=== PATIENT | female | born 1970 | race American Indian/Alaskan Native ===

== ENCOUNTER 2018-03-03 14:46 | Emergency (ER) | payer MEDICAID ==
[2018-03-03] MEDS ORDERED: ASPIRIN PO ONE (15:55)
[2018-03-03 16:18] LABS: Basophils % (Auto) 0.3 % (0.0-1.8); Eosinophils # (Auto) 0.1 K/mm3 (0.0-0.4); Eosinophils % (Auto) 2.3 % (0.0-4.3); Hematocrit 32.6 % (30.3-42.9); Hemoglobin 10.7 gm/dl (10.1-14.3); Lymphocytes # (Auto) 2.3 K/mm3 (1.2-5.4); Lymphocytes % (Auto) 47.2 % (13.4-35.0); Mean Corpuscular HGB Conc 33 % (30-34); Mean Corpuscular Hemoglobin 29 pg (28-32); Mean Corpuscular Volume 88 fl (79-97); Monocytes # (Auto) 0.4 K/mm3 (0.0-0.8); Monocytes % (Auto) 8.1 % (0.0-7.3); Platelet Count 231 K/mm3 (140-440); Red Blood Count 3.68 M/mm3 (3.65-5.03); Red Cell Distribution Width 12.8 % (13.2-15.2)
[2018-03-03 16:31] LABS: BUN/Creatinine Ratio 23; Blood Urea Nitrogen 14 mg/dL (7-17); Calcium 9.7 mg/dL (8.4-10.2); Hemolysis Index 1
[2018-03-03] MEDS ORDERED: NITROSTAT SL PRN (17:18)
--- NOTE | 2018-03-03 17:20 | Emergency Department Report ---
Blank Doc - Documentation Documentation: Patient is a 47-year-old Female who states that she has been having about 2 days of chest pain. Patient states pain is center chest as a sharp pain that is constant. Patient states is worse with exertion. She has some associated shortness of breath and diaphoresis. Patient states her blood pressure and elevated the past 2 days she took clonidine before arrival which did bring the pressure down however she states she still having active chest pain. Patient's EKG is within normal limits. Patient states she has a history of high blood pressure which is her only risk factor for coronary disease. Patient does have a convincing story for possible coronary disease however she also mentioned that the patient has pain when she takes a deep breath. D-dimer will be ordered. Patient will be sent to the made for a chest x-ray D dimer and reevaluation
[2018-03-03] MEDS ORDERED: TORADOL IM ONE (18:38)
--- NOTE | 2018-03-03 20:27 | Emergency Department Report ---
ED Chest Pain HPI - General Chief Complaint: Chest Pain Stated Complaint: CHEST PAIN Time Seen by Provider: 03/03/18 17:09 Source: patient Mode of arrival: Ambulatory Limitations: No Limitations - History of Present Illness Initial Comments: Patient is 47 years old female with history of hypertension. Patient presented to the ER complaining of substernal chest pain described as sharp was no radiation. Patient stated that pain increased with movement. She denied any shortness of breath, sweating, nausea or vomiting. Patient stated that her blood pressure was really high this morning she took clonidine, blood pressure is 110/68. Patient denied any fever or cough. MD Complaint: chest pain -: This morning Onset: during rest Pain Location: substernal Severity scale (0 -10): 9 Quality: sharp Consistency: now resolved - Related Data Home Medications Medication Instructions Recorded Confirmed Last Taken Losartan/Hydrochlorothiazide 1 tab PO QDAY 05/31/15 05/31/15 Unknown [Hyzaar 100-25 TAB] Allergies Allergy/AdvReac Type Severity Reaction Status Date / Time No Known Allergies Allergy Unverified 05/31/15 11:45 Heart Score - HEART Score History: Slightly suspicious EKG: Non-specific Age: 45-65 Risk factors: 1-2 risk factors Troponin: < normal limit HEART Score: 3 - Critical Actions Critical Actions: 0-3 pts:0.9-1.7%risk of adverse cardiac event.Candidate for discharge ED Review of Systems ROS: Stated complaint: CHEST PAIN Other details as noted in HPI Comment: All other systems reviewed and negative Constitutional: denies: chills, fever Respiratory: denies: cough, orthopnea, shortness of breath, SOB with exertion Cardiovascular: chest pain Gastrointestinal: denies: abdominal pain, nausea, vomiting, diarrhea, constipation, hematemesis, hematochezia Neurological: denies: headache, weakness, numbness, paresthesias, abnormal gait ED Past Medical Hx - Past Medical History Hx Hypertension: Yes (x 5 years) Hx Arthritis: Yes (hips) Hx HIV: Yes ("diagnosed HIV+, but undetectable now" no treatment) - Surgical History Past Surgical History?: No - Social History Smoking Status: Never Smoker Substance Use Type: None - Medications Home Medications: Home Medications Medication Instructions Recorded Confirmed Last Taken Type Losartan/Hydrochlorothiazide 1 tab PO QDAY 05/31/15 05/31/15 Unknown History [Hyzaar 100-25 TAB] ED Physical Exam - General Limitations: No Limitations General appearance: alert, in no apparent distress - Head Head exam: Present: atraumatic, normocephalic, normal inspection - Eye Eye exam: Present: normal appearance, PERRL - ENT ENT exam: Present: normal exam, normal orophraynx, mucous membranes moist - Neck Neck exam: Present: normal inspection, full ROM. Absent: tenderness, meningismus, lymphadenopathy, thyromegaly - Respiratory Respiratory exam: Present: normal lung sounds bilaterally, chest wall tenderness. Absent: respiratory distress, wheezes, rales, rhonchi, accessory muscle use, decreased breath sounds, prolonged expiratory - Cardiovascular Cardiovascular Exam: Present: regular rate, normal rhythm, normal heart sounds - GI/Abdominal GI/Abdominal exam: Present: soft, normal bowel sounds. Absent: distended, tenderness, guarding, rebound, rigid, organomegaly, mass, bruit, pulsatile mass - Extremities Exam Extremities exam: Present: normal inspection, full ROM, normal capillary refill. Absent: pedal edema, calf tenderness - Back Exam Back exam: Present: normal inspection, full ROM. Absent: tenderness, CVA tenderness (R), CVA tenderness (L), muscle spasm, paraspinal tenderness - Neurological Exam Neurological exam: Present: alert, oriented X3, CN II-XII intact, normal gait, reflexes normal - Psychiatric Psychiatric exam: Present: normal affect - Skin Skin exam: Present: warm, intact, normal color ED Course Vital Signs 03/03/18 03/03/18 15:47 18:32 Temperature 98.5 F Pulse Rate 99 H 61 Respiratory 20 12 Rate Blood Pressure 127/69 Blood Pressure 128/70 [left] O2 Sat by Pulse 99 100 Oximetry ED Medical Decision Making - Lab Data Result diagrams: 03/03/18 16:03 03/03/18 16:03 - EKG Data -: EKG Interpreted by Nh EKG shows normal: sinus rhythm Rate: normal - EKG Data Interpretation: no acute changes - Radiology Data Radiology results: report reviewed Chest x-ray is unremarkable for acute findings. - Medical Decision Making Trev is 47 years old female with history of hypertension. Patient presented to the ER complaining of substernal chest pain described as sharp was no radiation. Patient stated that pain increased with movement. She denied any shortness of breath, sweating, nausea or vomiting. Patient stated that her blood pressure was really high this morning she took clonidine, blood pressure is 110/68. Patient denied any fever or cough. EKG did not show any ST elevation or depression. 2 sets of troponin is negative. D-dimer is negative. Chest x-ray negative for acute finding. Patient has a reproducible tenderness to the mid chest. I believe her symptom is most likely related to costochondritis. Patient will be given Naprosyn twice a day for 7 days and advised to follow-up with [facility] in the next 2-3 days. Critical care attestation.: If time is entered above; I have spent that time in minutes in the direct care of this critically ill patient, excluding procedure time. ED Disposition Clinical Impression: Chest pain, Hypertension, Costochondritis, acute Disposition: DC-01 TO HOME OR SELFCARE Is pt being admited?: No Condition: Stable Instructions: Chest Pain (ED), Hypertension (ED), Costochondritis (ED) Referrals: [facility] [Outside] - 3-5 Days
[2018-03-03 21:04] VITALS: BP 110/67
--- NOTE | 2018-03-04 10:27 | XRay Report ---
FINAL REPORT EXAM: XRAY CHEST 2 VIEWS HISTORY: Chest pain TECHNIQUE: 2 views of the chest. PRIORS: None. FINDINGS: The cardiomediastinal silhouette appears normal. The lungs are clear. The bones and soft tissues are unremarkable. IMPRESSION: No evidence of acute cardiopulmonary disease
== END 2018-03-03 21:05 | disposition home or self-care (01) ==
LOC: ED 14:46
DX: R07.89 Other chest pain (principal); I10 Essential (primary) hypertension; M19.90 Unspecified osteoarthritis, unspecified site; Z21 Asymptomatic human immunodeficiency virus [HIV] infection status
CPT/HCPCS: 36415; 71046; 80048; 84484; 85025; 85379; 93005; 93010; 96372; 99284; J1885

== ENCOUNTER 2018-09-17 08:00 | Inpatient (IN) | payer MEDICAID ==
[2018-09-29 11:19] LABS: INR 0.85 (0.87-1.13)
[2018-09-29 11:20] LABS: Partial Thromboplastin Time 27.8 Sec. (24.2-36.6)
[2018-09-29 11:23] LABS: Basophils % (Auto) 0.6 % (0.0-1.8); Eosinophils # (Auto) 0.1 K/mm3 (0.0-0.4); Hematocrit 32.6 % (30.3-42.9); Hemoglobin 10.4 gm/dl (10.1-14.3); Lymphocytes # (Auto) 2.1 K/mm3 (1.2-5.4); Lymphocytes % (Auto) 39.1 % (13.4-35.0); Mean Corpuscular HGB Conc 32 % (30-34); Mean Corpuscular Volume 87 fl (79-97); Monocytes # (Auto) 0.5 K/mm3 (0.0-0.8); Monocytes % (Auto) 8.8 % (0.0-7.3); Platelet Count 211 K/mm3 (140-440); Red Blood Count 3.76 M/mm3 (3.65-5.03); Red Cell Distribution Width 14.1 % (13.2-15.2)
[2018-09-29 11:37] LABS: Alanine Aminotransferase 21 units/L (7-56); Albumin 4.3 g/dL (3.9-5); BUN/Creatinine Ratio 20; Blood Urea Nitrogen 14 mg/dL (7-17); Calcium 9.7 mg/dL (8.4-10.2); Hemolysis Index 15
--- NOTE | 2018-09-29 14:53 | Anesthesia Consultation ---
Anesthesia Consult and Med Hx Date of service: 09/29/18 - Airway Anesthetic Teeth Evaluation: Good ROM Head & Neck: Adequate Mental/Hyoid Distance: Adequate Mallampati Class: Class III Intubation Access Assessment: Possibly Difficult - Pulmonary Exam CTA: Yes - Cardiac Exam Cardiac Exam: RRR - Pre-Operative Health Status ASA Pre-Surgery Classification: ASA3 Proposed Anesthetic Plan: General - Pulmonary Hx Smoking: No Hx Pneumonia: Yes (2018- RESOLVED) Hx Sleep Apnea: No (MARIA ESTHER PRE SCREEN LOW RISK) - Cardiovascular System Hx Hypertension: Yes Hx Heart Attack/AMI: No - Central Nervous System CVA: No - Gastrointestinal Hx Gastroesophageal Reflux Disease: No - Endocrine Hx Renal Disease: No Hx Liver Disease: No Hx Insulin Dependent Diabetes: No Hx Non-Insulin Dependent Diabetes: No Hx Thyroid Disease: No - Hematic Hx Anemia: Yes - Other Systems Hx Obesity: Yes - Additional Comments Anesthesia Medical History Comments: Hx HIV on antiretrovirals. Discussed GA vs neuraxial anesthetic. Patient has strong preference for GA.
[2018-10-01] MEDS ORDERED: ANCEF/STERILE WATER 2 GM/20 ML IV NR (00:01)
[2018-10-01] MEDS ORDERED: VERSED IV NR (00:01)
[2018-10-01] MEDS ORDERED: NEURONTIN PO NR (06:00)
--- NOTE | 2018-10-01 07:14 | Anesthesia Day of Surgery ---
Anesthesia Day of Surgery - Day of Surgery Patient Examined: Yes Patient H&P Reviewed: Yes Patient is NPO: Yes (1899) Beta Blockers: No Cardiac Clearance: No Pulmonary Clearance: No
[2018-10-01] MEDS: LACTATED RINGERS 1,000 ML IV SCH ×2 (07:17→17:44)
[2018-10-01] MEDS ORDERED: ZEMURON IV ONE (07:29)
[2018-10-01] MEDS ORDERED: DIPRIVAN 10 MG/ML IV ONE (07:29)
[2018-10-01] MEDS ORDERED: XYLOCAINE MPF 2% ONE (07:29)
[2018-10-01] MEDS ORDERED: SUBLIMAZE ONE ×2 (07:29→09:14)
[2018-10-01] MEDS ORDERED: MARCAINE 0.5% INFILTRATI ONE ×4 (07:33→09:55)
[2018-10-01] MEDS ORDERED: TORADOL ONE (07:33)
[2018-10-01] MEDS ORDERED: NACL 0.9% 250ML 250 ML ONE (07:34)
[2018-10-01] MEDS ORDERED: TRANEXAMIC ACID ONE (07:34)
[2018-10-01] MEDS ORDERED: NACL 0.9% 100 ML ONE (07:34)
[2018-10-01] MEDS ORDERED: MORPHINE ONE (07:34)
[2018-10-01] MEDS ORDERED: ROBINUL ONE (07:36)
[2018-10-01] MEDS ORDERED: BLOXIVERZ ONE (07:36)
[2018-10-01] MEDS ORDERED: ZOFRAN IV PRN (08:00)
[2018-10-01] MEDS ORDERED: DILAUDID IV PRN (08:00)
[2018-10-01] MEDS ORDERED: DECADRON ONE (08:34)
[2018-10-01] MEDS ORDERED: ZOFRAN ONE (08:34)
[2018-10-01] MEDS ORDERED: TRANEXAMIC ACID IV ONE (08:59)
[2018-10-01] MEDS ORDERED: NACL 0.9% IV ONE (08:59)
[2018-10-01] MEDS ORDERED: ACD-A 500 ML IV ONE (09:11)
[2018-10-01] MEDS ORDERED: NACL 0.9% 500 ML 500 ML IV NR ×2 (09:14→11:00)
[2018-10-01] MEDS ORDERED: DILAUDID ONE (09:15)
--- NOTE | 2018-10-01 09:18 | XRay Report ---
LEFT HIP RADIOGRAPHS INDICATION: Preop evaluation. COMPARISON: None similar. FINDINGS: AP pelvic and frog-leg projections of the left hip demonstrate extensive bilateral femoral head heterogeneous deformity/irregularity measuring approximately 4.2 cm on either side and involving approximately 70% of the articular surface with collapse. Mild bilateral acetabular degenerative spurring as well. Intact remainder pelvis articulation, including SI joints. Nonobstructive bowel gas pattern. CONCLUSION: Extensive bilateral femoral head osteonecrosis deformity/collapse, as described. Please correlate. Thank you for the opportunity to participate in this patient's care.
[2018-10-01] MEDS ORDERED: NACL 0.9% 250ML IV ONE ×2 (09:55)
[2018-10-01] MEDS ORDERED: TORADOL IV ONE ×2 (09:55)
[2018-10-01] MEDS ORDERED: MORPHINE IM ONE ×2 (09:55)
[2018-10-01] MEDS ORDERED: PERCOCET 5/325 PO PRN (10:30)
--- NOTE | 2018-10-01 10:36 | Procedure Note ---
Date of procedure: 10/01/18 Pre-op diagnosis: severe osteoarthritis left hip Post-op diagnosis: same Procedure: Left total hip replacement Procedure The patient was brought to the OR and placed in the OR table in the supine position following induction intubation by anesthesia the patient's was turned into the right lateral decubitus position care was taken to protect the bony areas and a axillary roll was used and the left axilla. Left hip and thigh were then prepped and draped in the usual sterile manner. A timeout procedure was done to identify the patient and the correct operative site. Using the lateral approach incision was taken down through skin and subcutaneous the fascia jud was incised A Charnley retractor was placed deep within the wound care was taken to enter the anterior hip capsule by the vastus lateralis and the gluteus medius tendons in the knee was flexed and internally rotated which brought us upon the anterior portion of the hip joint using a small broach and osteotomy was performed on the femoral neck approximately 2 cm to centimeters proximal to the lesser trochanter. Using [place] retractors the the acetabular structures were evaluated the patient was noted to have some moderate changes within the acetabulum reaming was begun starting with a 45 mm diameter and advancing up to a 55 mm cup was taken to the observed bleeding bone within the acetabulum nicely 56 mm cup was inserted care was taken to maintain the proper version that being 45 abduction and 20 of anteversion and a small screw was used to stabilize this acetabular component next attention was turned to the proximal femur using a cookie cutter and the proximal femoral canal was entered this was then reamed and broached to a #5 stem And the hip joint was then reduced using a 30 neutral neck and a 32 mm head hip was reduced taken through a range of motion and was found to be stable Trial component was removed and the hip joint was then copiously irrigated the final components were inserted that being a #5 femoral stem with a 32 mm head again the hip joint was reduced and was taken through a range of motion and found stable. He was closed in a standard routine fashion. Dressings were applied the patient tolerated the procedure and there were no complications he was taken to postanesthesia recovery stable Anesthesia: GETA Surgeon: SALVADOR FARIAS Well Shooter: AUBREY TREJO Estimated blood loss: other (300 mL) Pathology: list (left femoral head and neck) Specimen disposition: to lab Condition: stable Disposition: PACU
[2018-10-01] MEDS ORDERED: BENADRYL ONE (10:42)
[2018-10-01] MEDS ORDERED: NORCO 5/325 PO PRN (11:00)
[2018-10-01] MEDS ORDERED: SODIUM CHLORIDE FLUSH SYRINGE 10 ML IV NR (11:00)
[2018-10-01] MEDS ORDERED: NACL 0.9% 1000 ML 1,000 ML ONE (11:02)
--- NOTE | 2018-10-01 11:05 | XRay Report ---
LEFT HIP RADIOGRAPHS INDICATION: Postop evaluation. COMPARISON: 7:42 AM earlier today. FINDINGS: AP pelvic rejection and a frog-leg view of the left hip, 10:52 AM, 10/01/2018 demonstrate interval left hip replacement with expected adjacent soft tissue air. Stable right hip osteonecrosis. CONCLUSION: Expected post left hip replacement radiographic appearance. Stable right hip AVN. Thank you for the opportunity to participate in this patient's care.
[2018-10-01] MEDS: ANCEF/NS 1 GM/50 ML 1 GM/50 ML BAG IV SCH ×2 (12:20→21:31)
--- NOTE | 2018-10-01 16:40 | Post Anesthesia Evaluation ---
- Post Anesthesia Evaluation Patient Participated: Yes Airway Patent: Yes Stable Respiratory Function: Yes Nausea/Vomiting: No Temp > 96.8F: Yes Pain Manageable: Yes Adequeate Hydration: Yes Anesthesia Complications: No
[2018-10-01] MEDS: MORPHINE IV PRN ×2 (17:44→21:53)
[2018-10-01] MEDS: VALTREX PO SCH (22:41)
[2018-10-02] MEDS: MORPHINE IV PRN ×4 (02:39→22:11)
[2018-10-02] MEDS: LACTATED RINGERS 1,000 ML IV SCH (04:36)
[2018-10-02 05:48] LABS: Hematocrit 22.4 % (30.3-42.9); Hemoglobin 7.6 gm/dl (10.1-14.3)
[2018-10-02] MEDS: VALTREX PO SCH ×2 (09:15→21:09)
[2018-10-02] MEDS: LOVENOX SUB-Q SCH (09:15)
[2018-10-02] MEDS ORDERED: NORVASC PO SCH (10:00)
[2018-10-02] MEDS ORDERED: COZAAR PO SCH (10:00)
--- NOTE | 2018-10-02 13:57 | Progress Note ---
Assessment and Plan S/P left total hip doing well continue PT and observation Subjective Date of service: 10/02/18 Interval history: c/o incisional pain, otherwise ok, PT started... Objective Vital signs: Vital Signs - 12hr 10/02/18 10/02/18 10/02/18 02:39 04:33 06:29 Temperature 98.6 F Pulse Rate 77 Respiratory 18 20 20 Rate Blood Pressure 147/76 O2 Sat by Pulse 100 Oximetry 10/02/18 10/02/18 07:54 09:15 Temperature 97.8 F Pulse Rate 88 88 Respiratory 18 Rate Blood Pressure 148/75 148/75 O2 Sat by Pulse 100 Oximetry Narrative Exam: post op dressing intact, minimal drainage noted, neg Jamar's, good capillary refill.. - Labs CBC & BMP: 10/02/18 05:33 09/29/18 10:30 Labs: Abnormal lab results 10/02/18 Range/Units 05:33 Hgb 7.6 L (10.1-14.3) gm/dl Hct 22.4 L D (30.3-42.9) %
[2018-10-02] MEDS: PERCOCET 5/325 PO PRN (18:16)
[2018-10-02] MEDS: IBUPROFEN PO PRN (20:07)
[2018-10-03] MEDS: PERCOCET 5/325 PO PRN ×4 (00:26→18:42)
[2018-10-03] MEDS: IBUPROFEN PO PRN (03:25)
[2018-10-03] MEDS: LACTATED RINGERS 1,000 ML IV SCH (06:39)
[2018-10-03] MEDS ORDERED: HYDROCHLOROTHIAZIDE PO PRN (08:50)
[2018-10-03] MEDS ORDERED: OLMESARTAN PO PRN (08:50)
--- NOTE | 2018-10-03 08:58 | Consultation ---
History of Present Illness - Reason for Consult Consult date: 10/03/18 medical management Requesting physician: SALVADOR FARIAS - History of Present Illness 48-year-old female patient with significant past medical history of hypertension on multiple antihypertensives, HIV on antiretrovirals, severe left hip osteoarthritis was admitted by orthopedic services, underwent left total hip replacement on 10/01/2018 Hospitalist service was consulted for medical management Patient follows with ID and Dr. Sanchez for her HIV needs Claims compliance with medications Complaints of generalized weakness and mild pain Denies chest pain or shortness of breath Past History Past Medical History: HIV/AIDS, hypertension Past Surgical History: total hip replacement (total hip replacement) Social history: full code. denies: smoking, alcohol abuse, prescription drug abuse Family history: hypertension Medications and Allergies Allergies Allergy/AdvReac Type Severity Reaction Status Date / Time sulfamethoxazole Allergy Hives Verified 09/09/18 14:36 [From Bactrim] trimethoprim [From Bactrim] Allergy Hives Verified 09/09/18 14:36 Home Medications Medication Instructions Recorded Confirmed Last Taken Type Amlodipine Besylate [Norvasc] 10 mg PO DAILY 09/09/18 10/01/18 10/01/18 04:00 History Biotin 5 mg PO DAILY 09/09/18 10/01/18 09/30/18 14:00 History Elviteg/Cob/Emtri/Tenof Alafen 1 each PO DAILY 09/09/18 10/01/18 09/30/18 14:00 History [Genvoya Tablet] Ferrous Sulfate [Feosol] 325 mg PO QDAY 09/09/18 10/01/18 09/30/18 14:00 History HYDROcodone/ACETAMINOPHEN 1 each PO PRN PRN 09/09/18 10/01/18 Unknown History [Hydrocodone-Acetamin 5-325 mg] Meloxicam [Mobic] 15 mg PO DAILY 09/09/18 10/01/18 09/30/18 14:00 History Olmesartan/Hydrochlorothiazide 1 each PO PRN PRN 09/09/18 10/01/18 10/01/18 04:00 History [Benicar Hct 20-12.5 mg Tablet] Valacyclovir HCl [Valtrex] 1,000 mg PO DAILY 09/09/18 10/01/18 09/30/18 14:00 History Active Meds: Active Medications Acetaminophen/Hydrocodone Bitart ([place] 5/325) 1 each PO Q6H PRN PRN Reason: Pain, Moderate (4-6) Last Admin: 10/02/18 16:18 Dose: 1 each Documented by: Amlodipine Besylate (Norvasc) 10 mg PO QDAY [facility] Last Admin: 10/02/18 09:15 Dose: 10 mg Documented by: Amlodipine Besylate (Norvasc) 10 mg PO DAILY [facility] Diphenhydramine HCl (Benadryl) 50 mg PO Q6H PRN PRN Reason: Itching Enoxaparin Sodium (Lovenox) 40 mg SUB-Q QDAY [facility] Last Admin: 10/02/18 09:15 Dose: 40 mg Documented by: Ferrous Sulfate (Feosol) 325 mg PO QDAY [facility] Lactated Ringer's (Lactated Ringers) 1,000 mls @ 100 mls/hr IV DIRECT [facility] Last Admin: 10/03/18 06:39 Dose: 100 mls/hr Documented by: Ibuprofen (Motrin) 600 mg PO Q6H PRN PRN Reason: Pain, Mild (1-3) Last Admin: 10/03/18 03:25 Dose: 600 mg Documented by: Miscellaneous Medication (Biotin [Biotin]) 5 mg PO DAILY [facility] Miscellaneous Medication (Elviteg/Cob/Emtri/Tenof Alafen [Genvoya Tablet]) 1 each PO DAILY [facility] Miscellaneous Medication (Olmesartan/Hydrochlorothiazide [Benicar Hct 20-12.5 Mg Tablet]) 1 each PO PRN PRN PRN Reason: Hypertension Morphine Sulfate (Morphine) 4 mg IV Q4H PRN PRN Reason: Pain , Severe (7-10) Last Admin: 10/02/18 22:11 Dose: 4 mg Documented by: Oxycodone/Acetaminophen (Percocet 5/325) 2 tab PO Q6H PRN PRN Reason: Pain , Severe (7-10) Last Admin: 10/03/18 06:38 Dose: 2 tab Documented by: Valacyclovir HCl (Valtrex) 500 mg PO BID [facility] Last Admin: 10/02/18 21:09 Dose: 500 mg Documented by: Review of Systems Constitutional: no weight loss, no weight gain, no fever, no chills Ears, nose, mouth and throat: no nasal congestion, no nasal discharge Cardiovascular: no chest pain, no orthopnea Respiratory: no cough, no shortness of breath Gastrointestinal: no abdominal pain, no nausea, no vomiting Genitourinary Female: no pelvic pain, no dysuria Musculoskeletal: arthritis, no myalgias Integumentary: no rash, no lesions Neurological: no paralysis, no weakness, no parathesias Psychiatric: no anxiety, no depression Endocrine: no cold intolerance, no heat intolerance Hematologic/Lymphatic: no easy bruising, no easy bleeding Allergic/Immunologic: no urticaria, no allergic rhinitis Exam - Constitutional Vitals: Temp Pulse Resp BP Pulse Ox 98.3 F 83 18 90/32 97 10/03/18 07:10 10/03/18 07:10 10/03/18 07:10 10/03/18 07:10 10/03/18 07:10 General appearance: Present: no acute distress, well-nourished, obese - EENT Eyes: Present: PERRL, EOM intact - Neck Neck: Present: supple, normal ROM - Respiratory Respiratory effort: normal Respiratory: bilateral: diminished, negative: rales, rhonchi, wheezing - Cardiovascular Rhythm: regular Heart Sounds: Present: S1 & S2 - Extremities Extremities: no ischemia, No edema - Abdominal General gastrointestinal: Present: soft, non-tender, non-distended, normal bowel sounds - Integumentary Integumentary: Present: clear, warm - Musculoskeletal Musculoskeletal: strength equal bilaterally, generalized weakness - Psychiatric Psychiatric: appropriate mood/affect, cooperative - Neurologic Neurologic: CNII-XII intact, moves all extremities Results - Labs CBC & Chem 7: 10/03/18 08:38 09/29/18 10:30 Assessment and Plan --Hypertension; moderate control Resume antihypertensives and when necessary hydralazine --HIV-AIDS; resume home antiretrovirals Consult ID if needed --Severe osteoarthritis hip; status post total hip replacement Continue postop care per orthopedics --Anemia; iron deficiency, Continue iron supplements, 2 units PRBC transfusion recommended by orthopedic Closely monitor H&H and transfuse additional as needed --Obesity; BMI 32.8, advised weight reduction and medically stable --DVT prophylaxis; Lovenox Plan of care reviewed with the patient and her nurse Thank you for this consultation we will follow the patient along with you
[2018-10-03] MEDS: BENADRYL PO PRN ×3 (09:17→21:10)
[2018-10-03 09:27] LABS: Hemoglobin 6.3 gm/dl (10.1-14.3); Mean Corpuscular HGB Conc 34 % (30-34); Mean Corpuscular Volume 87 fl (79-97); Platelet Count 162 K/mm3 (140-440); Red Blood Count 2.16 M/mm3 (3.65-5.03); Red Cell Distribution Width 14.6 % (13.2-15.2)
[2018-10-03] MEDS ORDERED: NON-FORMULARY (Elviteg/Cob/Emtri/Tenof Alafen [Genvoya Tablet] 1 EACH) PO SCH (10:00)
[2018-10-03] MEDS ORDERED: BIOTIN 5 MG PO SCH (10:00)
[2018-10-03 10:24] LABS: Hematocrit 18.7 % (30.3-42.9)
[2018-10-03] MEDS ORDERED: HCTZ PO SCH (12:00)
[2018-10-03] MEDS ORDERED: COZAAR PO SCH (12:00)
[2018-10-03] MEDS: FEOSOL PO SCH (12:02)
[2018-10-03] MEDS: VALTREX PO SCH ×2 (12:02→21:07)
[2018-10-03] MEDS: LOVENOX SUB-Q SCH (12:02)
[2018-10-03] MEDS: GENVOYA (NF) PO SCH (12:38)
[2018-10-03] MEDS ORDERED: NACL 0.9% 500 ML 500 ML ONE (13:29)
[2018-10-03] MEDS: NORVASC PO SCH (13:49)
[2018-10-03] MEDS: NON-FORMULARY PO SCH (14:46)
[2018-10-04] MEDS: PERCOCET 5/325 PO PRN ×2 (00:52→07:07)
[2018-10-04 04:32] LABS: Hemoglobin 8.1 gm/dl (10.1-14.3); Mean Corpuscular HGB Conc 34 % (30-34); Mean Corpuscular Volume 87 fl (79-97); Platelet Count 147 K/mm3 (140-440); Red Blood Count 2.76 M/mm3 (3.65-5.03); Red Cell Distribution Width 14.5 % (13.2-15.2)
[2018-10-04] MEDS: LACTATED RINGERS 1,000 ML IV SCH ×2 (04:38→14:47)
[2018-10-04] MEDS: BENADRYL PO PRN (04:38)
[2018-10-04 06:17] LABS: Basophils % (Manual) 0 % (0.0-1.8); Total Cells Counted 100
[2018-10-04 06:18] LABS: Anisocytosis 1+; Hypochromasia 1+; Large Platelets 1+; Platelet Estimate Consistent w Auto
--- NOTE | 2018-10-04 08:09 | Progress Note ---
Assessment and Plan Assessment and plan: --Anemia; iron deficiency, Continue iron supplements, s/p 2 units PRBC transfusion ,Hb 8.1 Closely monitor H&H and transfuse additional as needed --Hypertension; well controlled Continue current antihypertensives and when necessary hydralazine --HIV-AIDS; resume home antiretrovirals Consult ID if needed --Severe osteoarthritis hip; status post total hip replacement Continue postop care per orthopedics --Obesity; BMI 32.8, advised weight reduction and medically stable --DVT prophylaxis; Lovenox Plan of care reviewed with the patient and her nurse History Interval history: Patient seen and examined medical records reviewed Feels better no new complaints Vital signs stable 2 units PRBC hemoglobin improved to 8.1 Hospitalist Physical - Constitutional Vitals: Temp Pulse Resp BP Pulse Ox 97.5 F L 85 18 118/57 95 10/04/18 07:52 10/04/18 07:52 10/04/18 07:52 10/04/18 07:52 10/04/18 07:52 General appearance: Present: no acute distress, well-nourished, obese - EENT Eyes: Present: PERRL, EOM intact - Neck Neck: Present: supple, normal ROM - Respiratory Respiratory effort: normal Respiratory: negative: rales, rhonchi, wheezing - Cardiovascular Rhythm: regular Heart Sounds: Present: S1 & S2 - Extremities Extremities: no ischemia, No edema, abnormal (*state) - Abdominal General gastrointestinal: soft, non-tender, non-distended, normal bowel sounds - Integumentary Integumentary: Present: clear, warm - Psychiatric Psychiatric: appropriate mood/affect, cooperative - Neurologic Neurologic: CNII-XII intact, moves all extremities Results - Labs CBC & Chem 7: 10/04/18 04:08 09/29/18 10:30 Labs: Laboratory Last Values WBC 4.1 K/mm3 (4.5-11.0) L 10/04/18 04:08 RBC 2.76 M/mm3 (3.65-5.03) L 10/04/18 04:08 Hgb 8.1 gm/dl (10.1-14.3) L 10/04/18 04:08 Hct 24.0 % (30.3-42.9) L 10/04/18 04:08 MCV 87 fl (79-97) 10/04/18 04:08 MCH 29 pg (28-32) 10/04/18 04:08 MCHC 34 % (30-34) 10/04/18 04:08 RDW 14.5 % (13.2-15.2) 10/04/18 04:08 Plt Count 147 K/mm3 (140-440) 10/04/18 04:08 Lymph % (Auto) 39.1 % (13.4-35.0) H 09/29/18 10:30 [place] % (Auto) 8.8 % (0.0-7.3) H 09/29/18 10:30 Eos % (Auto) 1.0 % (0.0-4.3) 09/29/18 10:30 Baso % (Auto) 0.6 % (0.0-1.8) 09/29/18 10:30 Lymph # 2.1 K/mm3 (1.2-5.4) 09/29/18 10:30 [place] # 0.5 K/mm3 (0.0-0.8) 09/29/18 10:30 Eos # 0.1 K/mm3 (0.0-0.4) 09/29/18 10:30 Baso # 0.0 K/mm3 (0.0-0.1) 09/29/18 10:30 Add Manual Diff Complete 10/04/18 04:08 Total Counted 100 10/04/18 04:08 Seg Neutrophils % 50.5 % (40.0-70.0) 09/29/18 10:30 Seg Neuts % (Manual) 75.0 % (40.0-70.0) H 10/04/18 04:08 0 % 10/04/18 04:08 15.0 % (13.4-35.0) 10/04/18 04:08 Reactive Lymphs % (Man) 0 % 10/04/18 04:08 7.0 % (0.0-7.3) 10/04/18 04:08 1.0 % (0.0-4.3) 10/04/18 04:08 0 % (0.0-1.8) 10/04/18 04:08 1.0 % 10/04/18 04:08 1.0 % 10/04/18 04:08 0 % 10/04/18 04:08 0 % 10/04/18 04:08 Nucleated RBC % Not Reportable 10/04/18 04:08 Seg Neutrophils # 2.7 K/mm3 (1.8-7.7) 09/29/18 10:30 Seg Neutrophils # Man 3.1 K/mm3 (1.8-7.7) 10/04/18 04:08 Band Neutrophils # 0.0 K/mm3 10/04/18 04:08 0.6 K/mm3 (1.2-5.4) L 10/04/18 04:08 Abs React Lymphs (Man) 0.0 K/mm3 10/04/18 04:08 0.3 K/mm3 (0.0-0.8) 10/04/18 04:08 0.0 K/mm3 (0.0-0.4) 10/04/18 04:08 0.0 K/mm3 (0.0-0.1) 10/04/18 04:08 0.0 K/mm3 10/04/18 04:08 0.0 K/mm3 10/04/18 04:08 0.0 K/mm3 10/04/18 04:08 Blast Cells # 0.0 K/mm3 10/04/18 04:08 WBC Morphology Not Reportable 10/04/18 04:08 WBC Morphology TNR 10/04/18 04:08 Hypersegmented Neuts Not Reportable 10/04/18 04:08 Hyposegmented Neuts Not Reportable 10/04/18 04:08 Hypogranular Neuts Not Reportable 10/04/18 04:08 Not Reportable 10/04/18 04:08 Not Reportable 10/04/18 04:08 Not Reportable 10/04/18 04:08 Not Reportable 10/04/18 04:08 Not Reportable 10/04/18 04:08 Not Reportable 10/04/18 04:08 Consistent w auto 10/04/18 04:08 Not Reportable 10/04/18 04:08 Plt Clumps, EDTA Not Reportable 10/04/18 04:08 1+ 10/04/18 04:08 Not Reportable 10/04/18 04:08 Not Reportable 10/04/18 04:08 Plt Morphology Comment Not Reportable 10/04/18 04:08 RBC Morphology Not Reportable 10/04/18 04:08 Dimorphic RBCs Not Reportable 10/04/18 04:08 Not Reportable 10/04/18 04:08 1+ 10/04/18 04:08 Not Reportable 10/04/18 04:08 1+ 10/04/18 04:08 Not Reportable 10/04/18 04:08 Not Reportable 10/04/18 04:08 Not Reportable 10/04/18 04:08 Not Reportable 10/04/18 04:08 Not Reportable 10/04/18 04:08 Not Reportable 10/04/18 04:08 Not Reportable 10/04/18 04:08 Not Reportable 10/04/18 04:08 Not Reportable 10/04/18 04:08 Not Reportable 10/04/18 04:08 Not Reportable 10/04/18 04:08 Not Reportable 10/04/18 04:08 Not Reportable 10/04/18 04:08 Not Reportable 10/04/18 04:08 Not Reportable 10/04/18 04:08 Acanthocytes (Spur) Not Reportable 10/04/18 04:08 Rouleaux Not Reportable 10/04/18 04:08 Not Reportable 10/04/18 04:08 Not Reportable 10/04/18 04:08 Not Reportable 10/04/18 04:08 Not Reportable 10/04/18 04:08 Hem Pathologist Commnt No 10/04/18 04:08 PT 12.1 Sec. (12.2-14.9) L 09/29/18 10:30 INR 0.85 (0.87-1.13) L 09/29/18 10:30 APTT 27.8 Sec. (24.2-36.6) 09/29/18 10:30 Sodium 140 mmol/L (137-145) 09/29/18 10:30 Potassium 3.7 mmol/L (3.6-5.0) 09/29/18 10:30 Chloride 100.0 mmol/L (98-107) 09/29/18 10:30 Carbon Dioxide 25 mmol/L (22-30) 09/29/18 10:30 19 mmol/L 09/29/18 10:30 BUN 14 mg/dL (7-17) 09/29/18 10:30 0.7 mg/dL (0.7-1.2) 09/29/18 10:30 Estimated GFR > 60 ml/min 09/29/18 10:30 20 % 09/29/18 10:30 Glucose 92 mg/dL (65-100) 09/29/18 10:30 Calcium 9.7 mg/dL (8.4-10.2) 09/29/18 10:30 0.20 mg/dL (0.1-1.2) 09/29/18 10:30 AST 23 units/L (5-40) 09/29/18 10:30 ALT 21 units/L (7-56) 09/29/18 10:30 114 units/L (35-129) 09/29/18 10:30 8.9 g/dL (6.3-8.2) H 09/29/18 10:30 4.3 g/dL (3.9-5) 09/29/18 10:30 0.9 % 09/29/18 10:30 Blood Type A POSITIVE 10/01/18 07:42 Antibody Screen Negative 10/01/18 07:42 Crossmatch See Detail 10/01/18 07:42 Active Medications - Current Medications Current Medications: Generic Name Dose Route Start Last Admin Trade Name Freq PRN Reason Stop Dose Admin Acetaminophen/Hydrocodone Bitart 1 each 10/01/18 11:00 10/02/18 16:18 [place] 5/325 PO 1 each Q6H PRN Administration Pain, Moderate (4-6) Amlodipine Besylate 10 mg 10/03/18 10:00 10/03/18 13:49 Norvasc PO Not Given DAILY LASHONDA Enoxaparin Sodium 40 mg 10/02/18 10:00 10/03/18 12:02 Lovenox SUB-Q 40 mg QDAY LASHONDA Administration Ferrous Sulfate 325 mg 10/03/18 10:00 10/03/18 12:02 Feosol PO 325 mg QDAY LASHONDA Administration Hydroxyzine HCl 10 mg 10/04/18 08:06 Atarax PO Q6H PRN Itching Lactated Ringer's 1,000 mls @ 100 mls/hr 09/29/18 15:00 10/04/18 04:38 Lactated Ringers IV 100 mls/hr DIRECT LASHONDA Administration Ibuprofen 600 mg 10/01/18 10:30 10/03/18 03:25 Motrin PO 600 mg Q6H PRN Administration Pain, Mild (1-3) Miscellaneous Medication 1 each 10/03/18 13:00 10/03/18 14:46 Non-Formulary PO Not Given QDAY LASHONDA Morphine Sulfate 4 mg 10/01/18 10:30 10/02/18 22:11 Morphine IV 4 mg Q4H PRN Administration Pain , Severe (7-10) Oxycodone/Acetaminophen 2 tab 10/02/18 16:54 10/04/18 07:07 Percocet 5/325 PO 2 tab Q6H PRN Administration Pain , Severe (7-10) Valacyclovir HCl 500 mg 10/01/18 23:00 10/03/18 21:07 Valtrex PO 500 mg BID LASHONDA Administration Nutrition/Malnutrition Assess - Dietary Evaluation Nutrition/Malnutrition Findings: Nutrition Notes Start: 10/03/18 09:32 Freq: Status: Active Protocol: Document 10/03/18 09:32 LP (Rec: 10/03/18 09:39 LP [id number]) Nutrition Notes Need for Assessment generated from: MD Order Initial or Follow up Assessment Current Diagnosis Hypertension Other Pertinent Diagnosis S/P total left hip, HIV Current Diet Regular Labs/Tests Reviewed Pertinent Medications Reviewed Height 5 ft 7 in Weight 95 kg [place] Body Weight (kg) 61.36 BMI 32.8 Subjective/Other Information Consult for oral supplement. Pt states appetite was not good yesterday and is better today. Denies wt loss and eating well [employer]. Pt states wanting to lose wt and requested Ensure High protein. #1 Nutrition Diagnosis Increased nutrient needs ( specify in comment below) Comments: protein Etiology wound healing As Evidenced by Signs and Symptoms Pt is S/P total left hip Is patient on ventilator? No Is Patient Ambulatory and/or Out of Bed No REE-([facility]-confined to bed) 1932.720 Calculation Used for Recommendations [facility] Additional Notes Protein needs are 84-104g (1.2 -1.5g/kg) Fluid needs are 1ml/kcal Nutrition Intervention Change Diet Order: Continue regular diet Add Supplement/Snack (indicate name/kcal Ensure high protein TID /protein ) chocolate or vanilla only Provides kCal: 480 Provides Protein (gm) 48 Goal #1 Meet at least 80% of kcal and protein needs Goal #2 wound healing Anticipated Discharge Needs: Regular diet with ONS as needed Follow-Up By: 10/07/18 Additional Comments Follow for intakes, ONS tolerance
[2018-10-04] MEDS: VALTREX PO SCH ×2 (09:23→21:49)
[2018-10-04] MEDS: LOVENOX SUB-Q SCH (09:23)
[2018-10-04] MEDS: ATARAX PO PRN ×3 (09:24→21:48)
[2018-10-04] MEDS: FEOSOL PO SCH (09:24)
[2018-10-04] MEDS: NORVASC PO SCH (09:28)
[2018-10-04] MEDS: NON-FORMULARY PO SCH (09:28)
[2018-10-04] MEDS: IBUPROFEN PO PRN ×2 (15:32→21:46)
[2018-10-04] MEDS: GENVOYA (NF) PO SCH (19:13)
[2018-10-05] MEDS: PERCOCET 5/325 PO PRN ×2 (00:33→21:29)
[2018-10-05] MEDS: IBUPROFEN PO PRN (04:47)
[2018-10-05] MEDS: ATARAX PO PRN (04:48)
[2018-10-05] MEDS: NON-FORMULARY PO SCH (09:36)
[2018-10-05] MEDS: GENVOYA (NF) PO SCH ×2 (09:37→18:21)
[2018-10-05] MEDS: FEOSOL PO SCH (09:37)
[2018-10-05] MEDS: NORVASC PO SCH (09:37)
[2018-10-05] MEDS: VALTREX PO SCH ×2 (09:38→21:32)
[2018-10-05] MEDS: LOVENOX SUB-Q SCH (09:38)
--- NOTE | 2018-10-05 13:40 | Progress Note ---
Assessment and Plan s/p left THR doing well will dc to home soon Subjective Date of service: 10/05/18 Interval history: c/o mild incisional pain otherwise ok Objective Vital signs: Vital Signs - 12hr 10/05/18 10/05/18 10/05/18 04:47 05:14 05:47 Temperature 98.3 F Pulse Rate 75 Respiratory 16 18 17 Rate Blood Pressure 108/59 Blood Pressure [Left] O2 Sat by Pulse 97 Oximetry 10/05/18 10/05/18 10/05/18 07:00 07:04 09:37 Temperature 98.4 F 98.4 F Pulse Rate 68 68 Respiratory 16 18 Rate Blood Pressure 118/66 118/66 Blood Pressure 118/66 [Left] O2 Sat by Pulse 97 Oximetry 10/05/18 12:00 Temperature 97.8 F Pulse Rate 80 Respiratory 18 Rate Blood Pressure Blood Pressure 127/79 [Left] O2 Sat by Pulse 97 Oximetry Narrative Exam: left hip - incision clean and dry, mild swelling, distal n/v intact - Labs CBC & BMP: 10/04/18 04:08 09/29/18 10:30
--- NOTE | 2018-10-05 13:51 | Progress Note ---
Assessment and Plan Assessment and plan: --Anemia; iron deficiency, Continue iron supplements, s/p 2 units PRBC transfusion ,Hb 8.1 Closely monitor H&H and transfuse additional as needed --Hypertension; well controlled Continue current antihypertensives and when necessary hydralazine --HIV-AIDS; continue home antiretrovirals Follow ID upon discharge --Severe osteoarthritis hip; status post total hip replacement Continue postop care per orthopedics --Obesity; BMI 32.8, advised weight reduction and medically stable --DVT prophylaxis; Lovenox Plan of care reviewed with the patient and her nurse Patient is medically stable for discharge . Dr. Denton discharged the patient today. I will sign off, Thank you for this consultation History Interval history: Patient seen and examined medical records reviewed Patient feels better no new complaints Vital signs reviewed stable Alert awake oriented 3 Hospitalist Physical - Constitutional Vitals: Temp Pulse Resp BP Pulse Ox 97.8 F 80 18 127/79 97 10/05/18 12:00 10/05/18 12:00 10/05/18 12:00 10/05/18 12:00 10/05/18 12:00 General appearance: Present: no acute distress, well-nourished, obese - EENT Eyes: Present: PERRL, EOM intact - Neck Neck: Present: supple, normal ROM - Respiratory Respiratory effort: normal Respiratory: bilateral: diminished, negative: rales, rhonchi, wheezing - Cardiovascular Rhythm: regular Heart Sounds: Present: S1 & S2 - Extremities Extremities: no ischemia, No edema - Abdominal General gastrointestinal: soft, non-tender, non-distended, normal bowel sounds - Integumentary Integumentary: Present: clear, warm - Psychiatric Psychiatric: appropriate mood/affect, cooperative - Neurologic Neurologic: CNII-XII intact, moves all extremities Results - Labs CBC & Chem 7: 10/04/18 04:08 09/29/18 10:30 Labs: Laboratory Last Values WBC 4.1 K/mm3 (4.5-11.0) L 10/04/18 04:08 RBC 2.76 M/mm3 (3.65-5.03) L 10/04/18 04:08 Hgb 8.1 gm/dl (10.1-14.3) L 10/04/18 04:08 Hct 24.0 % (30.3-42.9) L 10/04/18 04:08 MCV 87 fl (79-97) 10/04/18 04:08 MCH 29 pg (28-32) 10/04/18 04:08 MCHC 34 % (30-34) 10/04/18 04:08 RDW 14.5 % (13.2-15.2) 10/04/18 04:08 Plt Count 147 K/mm3 (140-440) 10/04/18 04:08 Lymph % (Auto) 39.1 % (13.4-35.0) H 09/29/18 10:30 [place] % (Auto) 8.8 % (0.0-7.3) H 09/29/18 10:30 Eos % (Auto) 1.0 % (0.0-4.3) 09/29/18 10:30 Baso % (Auto) 0.6 % (0.0-1.8) 09/29/18 10:30 Lymph # 2.1 K/mm3 (1.2-5.4) 09/29/18 10:30 [place] # 0.5 K/mm3 (0.0-0.8) 09/29/18 10:30 Eos # 0.1 K/mm3 (0.0-0.4) 09/29/18 10:30 Baso # 0.0 K/mm3 (0.0-0.1) 09/29/18 10:30 Add Manual Diff Complete 10/04/18 04:08 Total Counted 100 10/04/18 04:08 Seg Neutrophils % 50.5 % (40.0-70.0) 09/29/18 10:30 Seg Neuts % (Manual) 75.0 % (40.0-70.0) H 10/04/18 04:08 0 % 10/04/18 04:08 15.0 % (13.4-35.0) 10/04/18 04:08 Reactive Lymphs % (Man) 0 % 10/04/18 04:08 7.0 % (0.0-7.3) 10/04/18 04:08 1.0 % (0.0-4.3) 10/04/18 04:08 0 % (0.0-1.8) 10/04/18 04:08 1.0 % 10/04/18 04:08 1.0 % 10/04/18 04:08 0 % 10/04/18 04:08 0 % 10/04/18 04:08 Nucleated RBC % Not Reportable 10/04/18 04:08 Seg Neutrophils # 2.7 K/mm3 (1.8-7.7) 09/29/18 10:30 Seg Neutrophils # Man 3.1 K/mm3 (1.8-7.7) 10/04/18 04:08 Band Neutrophils # 0.0 K/mm3 10/04/18 04:08 0.6 K/mm3 (1.2-5.4) L 10/04/18 04:08 Abs React Lymphs (Man) 0.0 K/mm3 10/04/18 04:08 0.3 K/mm3 (0.0-0.8) 10/04/18 04:08 0.0 K/mm3 (0.0-0.4) 10/04/18 04:08 0.0 K/mm3 (0.0-0.1) 10/04/18 04:08 0.0 K/mm3 10/04/18 04:08 0.0 K/mm3 10/04/18 04:08 0.0 K/mm3 10/04/18 04:08 Blast Cells # 0.0 K/mm3 10/04/18 04:08 WBC Morphology Not Reportable 10/04/18 04:08 WBC Morphology TNR 10/04/18 04:08 Hypersegmented Neuts Not Reportable 10/04/18 04:08 Hyposegmented Neuts Not Reportable 10/04/18 04:08 Hypogranular Neuts Not Reportable 10/04/18 04:08 Not Reportable 10/04/18 04:08 Not Reportable 10/04/18 04:08 Not Reportable 10/04/18 04:08 Not Reportable 10/04/18 04:08 Not Reportable 10/04/18 04:08 Not Reportable 10/04/18 04:08 Consistent w auto 10/04/18 04:08 Not Reportable 10/04/18 04:08 Plt Clumps, EDTA Not Reportable 10/04/18 04:08 1+ 10/04/18 04:08 Not Reportable 10/04/18 04:08 Not Reportable 10/04/18 04:08 Plt Morphology Comment Not Reportable 10/04/18 04:08 RBC Morphology Not Reportable 10/04/18 04:08 Dimorphic RBCs Not Reportable 10/04/18 04:08 Not Reportable 10/04/18 04:08 1+ 10/04/18 04:08 Not Reportable 10/04/18 04:08 1+ 10/04/18 04:08 Not Reportable 10/04/18 04:08 Not Reportable 10/04/18 04:08 Not Reportable 10/04/18 04:08 Not Reportable 10/04/18 04:08 Not Reportable 10/04/18 04:08 Not Reportable 10/04/18 04:08 Not Reportable 10/04/18 04:08 Not Reportable 10/04/18 04:08 Not Reportable 10/04/18 04:08 Not Reportable 10/04/18 04:08 Not Reportable 10/04/18 04:08 Not Reportable 10/04/18 04:08 Not Reportable 10/04/18 04:08 Not Reportable 10/04/18 04:08 Not Reportable 10/04/18 04:08 Acanthocytes (Spur) Not Reportable 10/04/18 04:08 Rouleaux Not Reportable 10/04/18 04:08 Not Reportable 10/04/18 04:08 Not Reportable 10/04/18 04:08 Not Reportable 10/04/18 04:08 Not Reportable 10/04/18 04:08 Hem Pathologist Commnt No 10/04/18 04:08 PT 12.1 Sec. (12.2-14.9) L 09/29/18 10:30 INR 0.85 (0.87-1.13) L 09/29/18 10:30 APTT 27.8 Sec. (24.2-36.6) 09/29/18 10:30 Sodium 140 mmol/L (137-145) 09/29/18 10:30 Potassium 3.7 mmol/L (3.6-5.0) 09/29/18 10:30 Chloride 100.0 mmol/L (98-107) 09/29/18 10:30 Carbon Dioxide 25 mmol/L (22-30) 09/29/18 10:30 19 mmol/L 09/29/18 10:30 BUN 14 mg/dL (7-17) 09/29/18 10:30 0.7 mg/dL (0.7-1.2) 09/29/18 10:30 Estimated GFR > 60 ml/min 09/29/18 10:30 20 % 09/29/18 10:30 Glucose 92 mg/dL (65-100) 09/29/18 10:30 Calcium 9.7 mg/dL (8.4-10.2) 09/29/18 10:30 0.20 mg/dL (0.1-1.2) 09/29/18 10:30 AST 23 units/L (5-40) 09/29/18 10:30 ALT 21 units/L (7-56) 09/29/18 10:30 114 units/L (35-129) 09/29/18 10:30 8.9 g/dL (6.3-8.2) H 09/29/18 10:30 4.3 g/dL (3.9-5) 09/29/18 10:30 0.9 % 09/29/18 10:30 Blood Type A POSITIVE 10/01/18 07:42 Antibody Screen Negative 10/01/18 07:42 Crossmatch See Detail 10/01/18 07:42 Active Medications - Current Medications Current Medications: Generic Name Dose Route Start Last Admin Trade Name Freq PRN Reason Stop Dose Admin Acetaminophen/Hydrocodone Bitart 1 each 10/01/18 11:00 10/02/18 16:18 [place] 5/325 PO 1 each Q6H PRN Administration Pain, Moderate (4-6) Amlodipine Besylate 10 mg 10/03/18 10:00 10/05/18 09:37 Norvasc PO 10 mg DAILY LASHONDA Administration Enoxaparin Sodium 40 mg 10/02/18 10:00 10/05/18 09:38 Lovenox SUB-Q 40 mg QDAY LASHONDA Administration Ferrous Sulfate 325 mg 10/03/18 10:00 10/05/18 09:37 Feosol PO 325 mg QDAY LASHONDA Administration Hydroxyzine HCl 10 mg 10/04/18 08:06 10/05/18 04:48 Atarax PO 10 mg Q6H PRN Administration Itching Lactated Ringer's 1,000 mls @ 100 mls/hr 09/29/18 15:00 10/04/18 14:47 Lactated Ringers IV 100 mls/hr DIRECT LASHONDA Administration Ibuprofen 600 mg 10/01/18 10:30 10/05/18 04:47 Motrin PO 600 mg Q6H PRN Administration Pain, Mild (1-3) Miscellaneous Medication 1 each 10/03/18 13:00 10/05/18 09:36 Non-Formulary PO 1 each QDAY LASHONDA Administration Morphine Sulfate 4 mg 10/01/18 10:30 10/02/18 22:11 Morphine IV 4 mg Q4H PRN Administration Pain , Severe (7-10) Oxycodone/Acetaminophen 2 tab 10/02/18 16:54 10/05/18 00:33 Percocet 5/325 PO 2 tab Q6H PRN Administration Pain , Severe (7-10) Valacyclovir HCl 500 mg 10/01/18 23:00 10/05/18 09:38 Valtrex PO 500 mg BID LASHONDA Administration Nutrition/Malnutrition Assess - Dietary Evaluation Nutrition/Malnutrition Findings: Nutrition Notes Start: 10/03/18 09:32 Freq: Status: Active Protocol: Document 10/03/18 09:32 LP (Rec: 10/03/18 09:39 LP [id number]) Nutrition Notes Need for Assessment generated from: MD Order Initial or Follow up Assessment Current Diagnosis Hypertension Other Pertinent Diagnosis S/P total left hip, HIV Current Diet Regular Labs/Tests Reviewed Pertinent Medications Reviewed Height 5 ft 7 in Weight 95 kg [place] Body Weight (kg) 61.36 BMI 32.8 Subjective/Other Information Consult for oral supplement. Pt states appetite was not good yesterday and is better today. 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 Pt states wanting to lose wt and requested Ensure High protein. #1 Nutrition Diagnosis Increased nutrient needs ( specify in comment below) Comments: protein Etiology wound healing As Evidenced by Signs and Symptoms Pt is S/P total left hip Is patient on ventilator? No Is Patient Ambulatory and/or Out of Bed No REE-([facility]-confined to bed) 1932.720 Calculation Used for Recommendations [facility] Additional Notes Protein needs are 84-104g (1.2 -1.5g/kg) Fluid needs are 1ml/kcal Nutrition Intervention Change Diet Order: Continue regular diet Add Supplement/Snack (indicate name/kcal Ensure high protein TID /protein ) chocolate or vanilla only Provides kCal: 480 Provides Protein (gm) 48 Goal #1 Meet at least 80% of kcal and protein needs Goal #2 wound healing Anticipated Discharge Needs: Regular diet with ONS as needed Follow-Up By: 10/07/18 Additional Comments Follow for intakes, ONS tolerance
[2018-10-05 18:08] VITALS: BP 142/76
--- NOTE | 2018-10-08 12:33 | Discharge Summary ---
Providers - Providers Date of Admission: 10/01/18 06:13 Date of discharge: 10/06/18 Attending physician: SALVADOR FARIAS MD 10/01/18 10:30 Consult to Case Management [CONS] Routine Services Needed at Discharge: Home Health Services Physical Therapy Notified:: [employer] 10/01/18 10:32 Physical Therapy Evaluation and Treat [CONS] Routine Comment: Reason For Exam: post op evaluation Weight bearing status?: Full wt bearing Assistive devices?: Yes If so list: Walker 10/02/18 13:58 Consult to Dietitian/Nutrition [CONS] Routine Physician Instructions: Reason For Exam: Reason for Consult: Pt needs oral supplement Primary care physician: STRAIGHTENER Hospitalization Condition: Stable Procedures: Left total hip replacement Hospital course: 48-year-old female with a history of bilateral severe osteoarthritis of the hip she was admitted to the hospital and was taken to the operating room where a left total hip replacement was performed without complications. Postoperatively she was seen and evaluated by physical therapy and internal medicine patient developed postoperative anemia with a hemoglobin of 6 she was subsequently transfused with 2 units of packed RBCs case management was consulted for home physical therapy and long term requirements. Patient did well overall with physical therapy she was discharged to home will return follow-up appointment in the office in 10 days Disposition: [id number] HOME UNDER HOME [facility] Core Measure Documentation - Palliative Care Palliative Care/ Comfort Measures: Not Applicable - Core Measures Any of the following diagnoses?: none - VTE Discharge Requirements Deep Vein Thrombosis/Pulmonary Embolism Present on Admission: No Has pt received <5 days of overlap therapy or INR<2.0: Yes Anticoagulant overlap therapy prescribed at discharge: Yes Contraindication No Overlap Therapy order at DC: Not Indicated Exam - Physical Exam Narrative exam: left hip - incision clean and dry, mild swelling, distal n/v intact - Constitutional Vitals: Temp Pulse Resp BP Pulse Ox 97.3 F L 84 16 142/76 99 10/05/18 18:00 10/05/18 18:00 10/05/18 18:00 10/05/18 18:00 10/05/18 18:00 General appearance: Present: no acute distress, well-nourished - EENT Eyes: Present: PERRL ENT: hearing intact, clear oral mucosa - Neck Neck: Present: supple, normal ROM - Respiratory Respiratory effort: normal Respiratory: bilateral: CTA - Cardiovascular Heart Sounds: Present: S1 & S2. Absent: rub, click - Extremities Extremities: pulses symmetrical, No edema Peripheral Pulses: within normal limits - Abdominal General gastrointestinal: Present: soft, non-tender, non-distended, normal bowel sounds Female genitourinary: Present: normal - Integumentary Integumentary: Present: clear, warm, dry - Musculoskeletal Musculoskeletal: gait normal, strength equal bilaterally - Psychiatric Psychiatric: appropriate mood/affect, intact judgment & insight - Neurologic Neurologic: CNII-XII intact, moves all extremities Plan Activity: advance as tolerated Weight Bearing Status: Weight Bear as Tolerated Diet: regular Wound: keep clean and dry Special Instructions: physical therapy Durable Medical Equipment Needed Upon Discharge: Walker-Standard, Bedside commode -elevated Follow up with: PRIMARY CARE, [Primary Care Provider] - 7 Days Prescriptions: Apixaban [Eliquis] 0 mg PO BID #42 tablet Oxycodone HCl/Acetaminophen [Percocet 10/325 mg] 1 each PO Q6HR PRN #30 tablet PRN Reason: Pain
== END 2018-10-05 22:25 | disposition home health service (06) | DRG 469 ==
LOC: 3A 10-01 06:13 → 3B-SURG 10-01 11:32
PROVIDERS: ADMIT Orthopaedic Surgery; ATTEND Orthopaedic Surgery
PROC: 0SRB0JZ Replacement of Left Hip Joint with Synthetic Substitute, Open Approach (ICD-10-PCS; principal; 2018-10-01)
PROC: 30233N1 Transfusion of Nonautologous Red Blood Cells into Peripheral Vein, Percutaneous Approach (ICD-10-PCS; 2018-10-03)
DX: M16.12 Unilateral primary osteoarthritis, left hip (principal); B20 Human immunodeficiency virus [HIV] disease; I10 Essential (primary) hypertension; E66.9 Obesity, unspecified; D50.9 Iron deficiency anemia, unspecified; Z68.32 Body mass index [BMI] 32.0-32.9, adult; Z87.01 Personal history of pneumonia (recurrent); Z82.49 Family history of ischemic heart disease and other diseases of the circulatory system; Z71.3 Dietary counseling and surveillance; Z88.2 Allergy status to sulfonamides; Z79.899 Other long term (current) drug therapy
CPT/HCPCS: 36415; 80053; 81025; 85007; 85014; 85018; 85025; 85027; 85610; 85730; 86850; 86900; 86901; 86920; 87040; 87086; 88304; 88305; 88311; G0378; C1776; J0690; J1100; J1170; J1200; J1650; J1885; J2250; J2270; J2405; J2704; J2710; J3010; J7030; J7040; J7050; J7120; P9016

== ENCOUNTER 2018-12-25 16:00 | Inpatient (IN) | payer MEDICAID ==
--- NOTE | 2018-12-25 14:04 | Anesthesia Consultation ---
Anesthesia Consult and Med Hx Date of service: 12/31/18 - Airway Anesthetic Teeth Evaluation: Chipped ROM Head & Neck: Adequate Mental/Hyoid Distance: Adequate Mallampati Class: Class II Intubation Access Assessment: Good - Pre-Operative Health Status ASA Pre-Surgery Classification: ASA3 Proposed Anesthetic Plan: General (PT requests GA) - Pulmonary Hx Smoking: No Hx Pneumonia: Yes (2017) Hx Sleep Apnea: No (MARIA ESTHER PRE SCREEN LOW RISK) - Cardiovascular System Hx Hypertension: Yes Hx Heart Attack/AMI: No - Central Nervous System CVA: No Hx Psychiatric Problems: No - Gastrointestinal Hx Gastroesophageal Reflux Disease: No - Endocrine Hx Renal Disease: No Hx Liver Disease: No Hx Insulin Dependent Diabetes: No Hx Non-Insulin Dependent Diabetes: No Hx Thyroid Disease: No - Hematic Hx Anemia: Yes - Other Systems Hx Cancer: No Hx Obesity: Yes - Additional Comments Anesthesia Medical History Comments: [id number] L ALDAIR here under GA. HIV+
[2018-12-31] MEDS ORDERED: ANCEF/STERILE WATER 2 GM/20 ML IV NR (06:00)
[2018-12-31] MEDS ORDERED: LACTATED RINGERS 1,000 ML ONE (06:30)
[2018-12-31] MEDS ORDERED: NACL BACTERIOSTATIC INFILTRATI ONE (06:31)
[2018-12-31] MEDS: LACTATED RINGERS 1,000 ML IV SCH (07:10)
[2018-12-31] MEDS ORDERED: DILAUDID ONE ×2 (07:20→10:19)
[2018-12-31] MEDS ORDERED: DIPRIVAN 10 MG/ML IV ONE (07:20)
[2018-12-31] MEDS ORDERED: XYLOCAINE MPF 2% ONE (07:22)
[2018-12-31] MEDS ORDERED: TORADOL ONE ×2 (07:23→10:17)
[2018-12-31] MEDS ORDERED: MARCAINE 0.5% INFILTRATI ONE ×2 (07:23→08:45)
[2018-12-31] MEDS ORDERED: TRANEXAMIC ACID ONE (07:23)
[2018-12-31] MEDS ORDERED: MORPHINE ONE (07:24)
[2018-12-31] MEDS ORDERED: SUBLIMAZE IV PRN (07:24)
[2018-12-31] MEDS ORDERED: ZOFRAN IV PRN (07:24)
[2018-12-31] MEDS ORDERED: NACL 0.9% 200 ML ONE (07:24)
[2018-12-31] MEDS ORDERED: NACL 0.9% 50 ML ONE (07:24)
[2018-12-31 07:25] LABS: Basophils % (Auto) 0.3 % (0.0-1.8); Eosinophils # (Auto) 0.1 K/mm3 (0.0-0.4); Eosinophils % (Auto) 1.4 % (0.0-4.3); Hematocrit 29.3 % (30.3-42.9); Hemoglobin 9.7 gm/dl (10.1-14.3); Lymphocytes # (Auto) 2.6 K/mm3 (1.2-5.4); Lymphocytes % (Auto) 40.8 % (13.4-35.0); Mean Corpuscular HGB Conc 33 % (30-34); Mean Corpuscular Volume 87 fl (79-97); Monocytes # (Auto) 0.6 K/mm3 (0.0-0.8); Platelet Count 208 K/mm3 (140-440); Red Blood Count 3.36 M/mm3 (3.65-5.03); Red Cell Distribution Width 15.3 % (13.2-15.2)
--- NOTE | 2018-12-31 07:25 | Anesthesia Day of Surgery ---
Anesthesia Day of Surgery - Day of Surgery Patient Examined: Yes Patient H&P Reviewed: Yes Patient is NPO: Yes
[2018-12-31] MEDS ORDERED: TYLENOL PO ONE (07:28)
[2018-12-31 07:48] LABS: Alanine Aminotransferase 22 units/L (7-56); Albumin 4.5 g/dL (3.9-5); BUN/Creatinine Ratio 14; Blood Urea Nitrogen 10 mg/dL (7-17); Calcium 9.9 mg/dL (8.4-10.2); Hemolysis Index 9
[2018-12-31] MEDS ORDERED: VERSED IV NR (08:00)
[2018-12-31] MEDS ORDERED: NEURONTIN PO NR (08:00)
[2018-12-31] MEDS ORDERED: ACD-A 500 ML IV ONE (08:25)
[2018-12-31] MEDS ORDERED: NACL 0.9% 250ML IV ONE (08:45)
[2018-12-31] MEDS ORDERED: MORPHINE IM ONE (08:45)
[2018-12-31] MEDS ORDERED: NACL 0.9% 1000 ML IR ONE (08:45)
[2018-12-31] MEDS ORDERED: TORADOL IV ONE (08:45)
[2018-12-31] MEDS ORDERED: WATER FOR IRRIG STERILE IR ONE (08:45)
[2018-12-31] MEDS ORDERED: NACL 0.9% 1000 ML 1,000 ML ONE (09:48)
[2018-12-31] MEDS ORDERED: MILK OF MAGNESIA PO PRN (10:05)
--- NOTE | 2018-12-31 10:12 | Procedure Note ---
Date of procedure: 12/31/18 Pre-op diagnosis: severe arthritis right hip Post-op diagnosis: same Procedure: Right total hip replacement Procedure The patient was brought to the OR and placed in the OR table in the supine position following induction intubation by anesthesia the patient's was turned into the left lateral decubitus position care was taken to protect the bony areas and a axillary roll was used and the left axilla. Right hip and thigh were then prepped and draped in the usual sterile manner. A timeout procedure was done to identify the patient and the correct operative site. Using the lateral approach incision was taken down through skin and subcutaneous the f ascia jud was incised A Charnley retractor was placed deep within the wound care was taken to enter the anterior hip capsule by the vastus lateralis and the gluteus medius tendons in the knee was flexed and internally rotated which brought us upon the anterior portion of the hip joint using a small broach and osteotomy was performed on the femoral neck approximately 2 cm to centimeters proximal to the lesser trochanter. Using [place] retractors the the acetabular structures were evaluated the patient was noted to have some severe changes within the acetabulum reaming was begun starting with a 45 mm diameter and advancing up to a 53 mm cup was taken to the observed bleeding bone within the acetabulum nicely 54 mm cup was inserted care was taken to maintain the proper version that being 45 abduction and 20 of anteversion and a small screw was used to stabilize this acetabular component next attention was turned to the proximal femur using a cookie cutter and the proximal femoral canal was entered this was then reamed and broached to a #5 stem And the hip joint was then reduced using a 30 neutral neck and a 32 mm head hip was reduced taken through a range of motion and was found to be stable, it was noticed that the patient developed a nondisplaced fracture along the medial calcar portion of the femoral neck.Trial components was removed and the hip joint was then copiously irrigated the final components were inserted that being a #5 femoral stem with a 32 mm head again the hip joint was reduced and was taken through a range of motion and found stable. A Dial-Miles cable was used to stabilize the proximal femoral iatrogenic fracture. She was closed in a standard routine fashion. Dressings were applied the patient tolerated the procedure and there were no com plications he was taken to postanesthesia recovery stable Anesthesia: GETA Surgeon: SALVADOR FARIAS [employer] Supervisor: AUBREY TREJO Estimated blood loss: other (350 mL) Pathology: list (right femoral head) Specimen disposition: to lab Condition: stable Disposition: PACU
[2018-12-31] MEDS ORDERED: ZOFRAN ONE (10:17)
[2018-12-31] MEDS ORDERED: SODIUM CHLORIDE FLUSH SYRINGE 10 ML IV NR (11:00)
--- NOTE | 2018-12-31 12:30 | XRay Report ---
Right hip, one view INDICATION: postoperative evaluation. COMPARISON: 10/01/2018 IMPRESSION: Total right hip replacement has been performed since the previous exam. The hardware rosemarie ears well applied. No evidence for fracture or malalignment. Lateral soft tissue swelling and gas ar e noted consistent with recent surgery. Signer Name: Raffi Day Jr, MD Signed: 12/31/2018 12:25 PM Workstation Name: [id number]
[2018-12-31] MEDS: NORCO 5/325 PO PRN (15:25)
--- NOTE | 2018-12-31 15:34 | Post Anesthesia Evaluation ---
- Post Anesthesia Evaluation Patient Participated: Yes Airway Patent: Yes Stable Respiratory Function: Yes Nausea/Vomiting: No Temp > 96.8F: Yes Pain Manageable: Yes Adequeate Hydration: Yes Anesthesia Complications: No Block Receding Appropriately: Not Applicable Patient on Ventilator: No
[2018-12-31] MEDS: DILAUDID IV PRN ×2 (20:01→23:41)
[2018-12-31] MEDS: AMBIEN PO PRN (21:57)
[2019-01-01] MEDS: NORCO 5/325 PO PRN ×2 (02:30→09:40)
[2019-01-01] MEDS: MORPHINE IV PRN ×3 (02:31→09:39)
[2019-01-01 05:41] LABS: Hematocrit 21.4 % (30.3-42.9); Hemoglobin 7.3 gm/dl (10.1-14.3)
[2019-01-01] MEDS: TYLENOL PO PRN ×2 (05:55→15:56)
[2019-01-01] MEDS: LACTATED RINGERS 1,000 ML IV SCH (09:41)
[2019-01-01] MEDS: LOVENOX SUB-Q SCH (09:47)
[2019-01-01] MEDS: ROXICODONE PO PRN ×3 (11:18→20:27)
[2019-01-01] MEDS ORDERED: HYDROCHLOROTHIAZIDE PO PRN (11:59)
[2019-01-01] MEDS ORDERED: OLMESARTAN PO PRN (11:59)
--- NOTE | 2019-01-01 12:58 | Progress Note ---
Assessment and Plan Status post right total hip replacement postop day one going well Continue physical therapy and observation Subjective Date of service: 01/01/19 Interval history: Complaining of incisional pain some swelling in the right thigh Objective Vital signs: Vital Signs - 12hr 01/01/19 01/01/19 01/01/19 02:30 02:31 03:01 Temperature Pulse Rate Respiratory 18 17 17 Rate Blood Pressure O2 Sat by Pulse Oximetry 01/01/19 01/01/19 01/01/19 05:21 05:22 05:52 Temperature 100.8 F H Pulse Rate 102 H Respiratory 20 17 17 Rate Blood Pressure 116/54 O2 Sat by Pulse 98 Oximetry 01/01/19 01/01/19 01/01/19 05:55 06:55 07:31 Temperature 98.7 F Pulse Rate 90 Respiratory 17 17 18 Rate Blood Pressure 114/54 O2 Sat by Pulse 95 Oximetry Narrative Exam: Right lower extremity. Dressings intact mild swelling noted in the proximal thigh negative Homans sign good capillary refill Incision: clean and dry - Labs CBC & BMP: 01/01/19 05:02 12/31/18 07:10 Labs: Abnormal lab results 01/01/19 Range/Units 05:02 Hgb 7.3 L (10.1-14.3) gm/dl Hct 21.4 L D (30.3-42.9) %
[2019-01-01] MEDS ORDERED: NACL 0.9% 500 ML 500 ML IV SCH (12:59)
--- NOTE | 2019-01-01 13:33 | Consultation ---
History of Present Illness - Reason for Consult Consult date: 01/01/19 Requesting physician: SALVADOR FARIAS - History of Present Illness 48-year-old female patient with significant past medical history of hypertension on multiple antihypertensives, HIV on antiretrovirals, severe right hip osteoarthritis was admitted by orthopedic services, underwent left total hip replacement on 01/01/2019. The patient was previously seen September of this year for left hip replacement for left hip osteoarthritis. Hospitalist service was consulted for medical management Patient follows with ID and Dr. Sanchez for her HIV needs Claims compliance with medications Past History Past Medical History: arthritis, HIV/AIDS, hypertension, other (obesity) Past Surgical History: Other (left hip arthroplasty) Social history: no significant social history Family history: no significant family history Medications and Allergies Allergies Allergy/AdvReac Type Severity Reaction Status Date / Time sulfamethoxazole Allergy Hives Verified 09/09/18 14:36 [From Bactrim] trimethoprim [From Bactrim] Allergy Hives Verified 09/09/18 14:36 Home Medications Medication Instructions Recorded Confirmed Last Taken Type Amlodipine Besylate [Norvasc] 5 mg PO DAILY 09/09/18 12/23/18 12/31/18 05:00 History Biotin 5 mg PO DAILY 09/09/18 12/23/18 12/30/18 History Olmesartan/Hydrochlorothiazide 1 each PO PRN PRN 09/09/18 12/31/18 12/31/18 05:00 History [Benicar Hct 20-12.5 mg Tablet] Valacyclovir HCl [Valtrex] 500 mg PO BID 09/09/18 12/31/18 12/30/18 20:00 History Darunavir/Cobicistat (Nf) 1 each PO DAILY 12/31/18 12/31/18 12/30/18 08:00 History [Prezcobix 800 mg-150 mg (Nf)] Dolutegravir Sodium/Lamivudine 1 each PO DAILY 12/31/18 01/01/19 12/30/18 08:00 History [Dovato 50-300 mg Tablet] metroNIDAZOLE [Metronidazole] 500 mg PO TID 12/31/18 12/31/18 12/30/18 20:00 History Active Meds: Active Medications Acetaminophen (Tylenol) 650 mg PO Q6H PRN PRN Reason: Pain, Mild (1-3) Last Admin: 01/01/19 05:55 Dose: 650 mg Documented by: Acetaminophen/Hydrocodone Bitart ([place] 5/325) 1 each PO Q6H PRN PRN Reason: Pain, Moderate (4-6) Last Admin: 01/01/19 09:40 Dose: 1 each Documented by: Amlodipine Besylate (Norvasc) 5 mg PO DAILY LASHONDA Enoxaparin Sodium (Lovenox) 40 mg SUB-Q QDAY LASHONDA Last Admin: 01/01/19 09:47 Dose: 40 mg Documented by: Lactated Ringer's (Lactated Ringers) 1,000 mls @ 125 mls/hr IV DIRECT LASHONDA Last Admin: 01/01/19 09:41 Dose: 125 mls/hr Documented by: Sodium Chloride (Nacl 0.9% 500 Ml) 500 mls @ 0 mls/hr IV ONCE ONE Stop: 01/01/19 13:00 Magnesium Hydroxide (Milk Of Magnesia) 30 ml PO Q4H PRN PRN Reason: Constipation Miscellaneous Medication (Biotin [Biotin]) 5 mg PO DAILY LASHONDA Miscellaneous Medication (Darunavir/Cobicistat (Nf)) 1 each PO DAILY LASHONDA Miscellaneous Medication (Dolutegravir Sodium/Lamivudine [Dovato 50-300 Mg Tablet]) 1 each PO DAILY LASHONDA Miscellaneous Medication (Valacyclovir Hcl [Valtrex]) 500 mg PO BID LASHONDA Miscellaneous Medication (Olmesartan/Hydrochlorothiazide [Benicar Hct 20-12.5 Mg Tablet]) 1 each PO PRN PRN PRN Reason: Hypertension Morphine Sulfate (Morphine) 4 mg IV Q4H PRN PRN Reason: Pain , Severe (7-10) Last Admin: 01/01/19 09:39 Dose: 4 mg Documented by: Ondansetron HCl (Zofran) 4 mg IV ONCE PRN PRN Reason: Nausea And Vomiting Oxycodone HCl (Roxicodone) 10 mg PO Q4H PRN PRN Reason: Pain, Moderate (4-6) Last Admin: 01/01/19 11:18 Dose: 10 mg Documented by: Zolpidem Tartrate (Ambien) 5 mg PO QHS PRN PRN Reason: Sleep Last Admin: 12/31/18 21:57 Dose: 5 mg Documented by: Review of Systems All systems: negative Exam - Constitutional Vitals: Temp Pulse Resp BP Pulse Ox 98.7 F 90 18 114/54 95 01/01/19 07:31 01/01/19 07:31 01/01/19 07:31 01/01/19 07:31 01/01/19 07:31 General appearance: Present: no acute distress, well-nourished - EENT Eyes: Present: PERRL ENT: hearing intact, clear oral mucosa - Neck Neck: Present: supple, normal ROM - Respiratory Respiratory effort: normal Respiratory: bilateral: CTA - Cardiovascular Heart Sounds: Present: S1 & S2. Absent: rub, click - Extremities Extremities: pulses symmetrical, No edema Peripheral Pulses: within normal limits - Abdominal General gastrointestinal: Present: soft, non-tender, non-distended, normal bowel sounds Female genitourinary: Present: normal - Integumentary Integumentary: Present: clear, warm, dry - Musculoskeletal Musculoskeletal: gait normal, strength equal bilaterally - Psychiatric Psychiatric: appropriate mood/affect, intact judgment & insight - Neurologic Neurologic: CNII-XII intact, moves all extremities Results - Labs CBC & Chem 7: 01/01/19 05:02 12/31/18 07:10 Labs: Abnormal lab results 12/31/18 01/01/19 Range/Units 07:10 05:02 Hgb 7.3 L (10.1-14.3) gm/dl Hct 21.4 L D (30.3-42.9) % Crossmatch See Detail Assessment and Plan --Hypertension; moderate control Resume antihypertensives and when necessary hydralazine --HIV-AIDS; resume home antiretrovirals Consult ID if needed --Severe osteoarthritis hip; status post total hip replacement Continue postop care per orthopedics --Anemia; iron deficiency, Continue iron supplements, Transfuse PRBCs for hemoglobin less than 7 Closely monitor H&H and transfuse additional as needed --Obesity; BMI 32.8, advised weight reduction and medically stable --DVT prophylaxis; Lovenox
[2019-01-01] MEDS: AMBIEN PO PRN (21:47)
[2019-01-01] MEDS: VALTREX PO SCH (21:47)
[2019-01-01] MEDS: IBUPROFEN PO PRN (21:48)
[2019-01-01] MEDS ORDERED: VALACYCLOVIR HCL 500 MG PO SCH (22:00)
[2019-01-02] MEDS: NORCO 5/325 PO PRN (02:25)
[2019-01-02] MEDS: BENADRYL PO PRN ×3 (03:58→18:14)
[2019-01-02 06:11] LABS: Basophils % (Auto) 0.2 % (0.0-1.8); Eosinophils # (Auto) 0.1 K/mm3 (0.0-0.4); Eosinophils % (Auto) 0.5 % (0.0-4.3); Hematocrit 27.8 % (30.3-42.9); Hemoglobin 9.6 gm/dl (10.1-14.3); Lymphocytes # (Auto) 2.1 K/mm3 (1.2-5.4); Lymphocytes % (Auto) 21.6 % (13.4-35.0); Mean Corpuscular HGB Conc 35 % (30-34); Mean Corpuscular Volume 88 fl (79-97); Monocytes # (Auto) 0.7 K/mm3 (0.0-0.8); Monocytes % (Auto) 7.3 % (0.0-7.3); Platelet Count 142 K/mm3 (140-440); Red Blood Count 3.17 M/mm3 (3.65-5.03); Red Cell Distribution Width 15.8 % (13.2-15.2)
[2019-01-02 06:30] LABS: BUN/Creatinine Ratio 17; Blood Urea Nitrogen 10 mg/dL (7-17); Hemolysis Index 0
[2019-01-02] MEDS: MORPHINE IV PRN (06:48)
--- NOTE | 2019-01-02 09:40 | Progress Note ---
Assessment and Plan Assessment and plan: --Hypertension; moderate control Resume antihypertensives (Norvasc and Benicar) and when necessary hydralazine --HIV-AIDS; resume home antiretrovirals Consult ID if needed --Severe osteoarthritis hip; status post total hip replacement Continue postop care per orthopedics --Anemia; iron deficiency, Continue iron supplements, Transfuse PRBCs for hemoglobin less than 7 Closely monitor H&H and transfuse additional as needed --Obesity; BMI 32.8, advised weight reduction and medically stable --DVT prophylaxis; Lovenox History Interval history: No issues overnight. Hospitalist Physical - Constitutional Vitals: Temp Pulse Resp BP Pulse Ox 97.9 F 87 18 105/56 98 01/02/19 08:00 01/02/19 08:00 01/02/19 08:00 01/02/19 08:00 01/02/19 04:26 General appearance: Present: no acute distress, well-nourished - EENT Eyes: Present: PERRL, EOM intact ENT: hearing intact, clear oral mucosa, dentition normal - Neck Neck: Present: supple, normal ROM - Respiratory Respiratory effort: normal Respiratory: bilateral: CTA - Cardiovascular Rhythm: regular Heart Sounds: Present: S1 & S2. Absent: gallop, rub - Extremities Extremities: no ischemia, No edema, Full ROM - Abdominal General gastrointestinal: soft, non-tender, non-distended, normal bowel sounds - Integumentary Integumentary: Present: clear, warm, dry - Neurologic Neurologic: CNII-XII intact, moves all extremities Results - Labs CBC & Chem 7: 01/02/19 05:32 01/02/19 05:32 Labs: Laboratory Last Values WBC 9.9 K/mm3 (4.5-11.0) 01/02/19 05:32 RBC 3.17 M/mm3 (3.65-5.03) L 01/02/19 05:32 Hgb 9.6 gm/dl (10.1-14.3) L 01/02/19 05:32 Hct 27.8 % (30.3-42.9) L D 01/02/19 05:32 MCV 88 fl (79-97) 01/02/19 05:32 MCH 30 pg (28-32) 01/02/19 05:32 MCHC 35 % (30-34) H 01/02/19 05:32 RDW 15.8 % (13.2-15.2) H 01/02/19 05:32 Plt Count 142 K/mm3 (140-440) 01/02/19 05:32 Lymph % (Auto) 21.6 % (13.4-35.0) 01/02/19 05:32 [place] % (Auto) 7.3 % (0.0-7.3) 01/02/19 05:32 Eos % (Auto) 0.5 % (0.0-4.3) 01/02/19 05:32 Baso % (Auto) 0.2 % (0.0-1.8) 01/02/19 05:32 Lymph # 2.1 K/mm3 (1.2-5.4) 01/02/19 05:32 [place] # 0.7 K/mm3 (0.0-0.8) 01/02/19 05:32 Eos # 0.1 K/mm3 (0.0-0.4) 01/02/19 05:32 Baso # 0.0 K/mm3 (0.0-0.1) 01/02/19 05:32 Seg Neutrophils % 70.4 % (40.0-70.0) H 01/02/19 05:32 Seg Neutrophils # 7.0 K/mm3 (1.8-7.7) 01/02/19 05:32 Sodium 135 mmol/L (137-145) L 01/02/19 05:32 Potassium 3.6 mmol/L (3.6-5.0) 01/02/19 05:32 Chloride 97.5 mmol/L (98-107) L 01/02/19 05:32 Carbon Dioxide 27 mmol/L (22-30) 01/02/19 05:32 14 mmol/L 01/02/19 05:32 BUN 10 mg/dL (7-17) 01/02/19 05:32 0.6 mg/dL (0.7-1.2) L 01/02/19 05:32 Estimated GFR > 60 ml/min 01/02/19 05:32 17 % 01/02/19 05:32 Glucose 106 mg/dL (65-100) H 01/02/19 05:32 Calcium 9.0 mg/dL (8.4-10.2) 01/02/19 05:32 0.40 mg/dL (0.1-1.2) 12/31/18 07:10 AST 22 units/L (5-40) 12/31/18 07:10 ALT 22 units/L (7-56) 12/31/18 07:10 100 units/L (35-129) 12/31/18 07:10 8.9 g/dL (6.3-8.2) H 12/31/18 07:10 4.5 g/dL (3.9-5) 12/31/18 07:10 1.0 % 12/31/18 07:10 Blood Type A POSITIVE 12/31/18 07:10 Antibody Screen Negative 12/31/18 07:10 Crossmatch See Detail 12/31/18 07:10 Active Medications - Current Medications Current Medications: Generic Name Dose Route Start Last Admin Trade Name Freq PRN Reason Stop Dose Admin Acetaminophen 650 mg 01/01/19 05:42 01/01/19 15:56 Tylenol PO 325 mg Q6H PRN Administration Pain, Mild (1-3) Acetaminophen/Hydrocodone Bitart 1 each 12/31/18 10:05 01/02/19 02:25 [place] 5/325 PO 1 each Q6H PRN Administration Pain, Moderate (4-6) Amlodipine Besylate 5 mg 01/02/19 10:00 Norvasc PO DAILY LASHONDA Diphenhydramine HCl 25 mg 01/02/19 03:37 01/02/19 03:58 Benadryl PO 25 mg Q8H PRN Administration Itching Enoxaparin Sodium 40 mg 01/01/19 10:00 01/01/19 09:47 Lovenox SUB-Q 40 mg QDAY LASHONDA Administration Lactated Ringer's 1,000 mls @ 125 mls/hr 12/31/18 08:00 01/01/19 09:41 Lactated Ringers IV 125 mls/hr DIRECT LASHONDA Administration Ibuprofen 800 mg 01/01/19 16:00 01/01/19 21:48 Ibuprofen PO 800 mg Q8H PRN Administration Pain, Mild (1-3) Lamivudine 300 mg 01/02/19 10:00 Epivir PO QDAY LASHONDA Magnesium Hydroxide 30 ml 12/31/18 10:05 Milk Of Magnesia PO Q4H PRN Constipation Miscellaneous Medication 5 mg 01/02/19 10:00 Biotin [Biotin] PO DAILY [facility] Miscellaneous Medication 1 each 01/02/19 10:00 Darunavir/Cobicistat (Nf) PO DAILY [facility] Morphine Sulfate 4 mg 12/31/18 10:05 01/02/19 06:48 Morphine IV 4 mg Q4H PRN Administration Pain , Severe (7-10) Ondansetron HCl 4 mg 12/31/18 07:24 Zofran IV ONCE PRN Nausea And Vomiting Oxycodone HCl 10 mg 01/01/19 11:00 01/01/19 20:27 Roxicodone PO 10 mg Q4H PRN Administration Pain, Moderate (4-6) Valacyclovir HCl 500 mg 01/01/19 22:00 01/01/19 21:47 Valtrex PO 500 mg BID LASHONDA Administration Zolpidem Tartrate 5 mg 12/31/18 10:05 01/01/19 21:47 Ambien PO 5 mg QHS PRN Administration Sleep
[2019-01-02] MEDS ORDERED: LAMIVUDINE PO SCH (10:00)
[2019-01-02] MEDS ORDERED: NON-FORMULARY (Darunavir/Cobicistat (Nf) 1 EACH) PO SCH (10:00)
[2019-01-02] MEDS ORDERED: HYDROCHLOROTHIAZIDE PO SCH (10:00)
[2019-01-02] MEDS ORDERED: OLMESARTAN PO SCH (10:00)
[2019-01-02] MEDS ORDERED: DOLUTEGRAVIR SODIUM PO SCH (10:00)
[2019-01-02] MEDS ORDERED: BIOTIN 5 MG PO SCH (10:00)
[2019-01-02] MEDS: LOVENOX SUB-Q SCH (10:27)
[2019-01-02] MEDS: TIVICAY PO SCH (10:28)
[2019-01-02] MEDS: ROXICODONE PO PRN ×3 (10:34→18:14)
[2019-01-02] MEDS: NORVASC PO SCH (13:13)
[2019-01-02] MEDS: HCTZ PO SCH (13:15)
[2019-01-02] MEDS: COZAAR PO SCH (13:15)
[2019-01-02] MEDS: EPIVIR PO SCH (13:26)
[2019-01-02] MEDS: VALTREX PO SCH ×2 (13:27→22:40)
--- NOTE | 2019-01-02 13:49 | Progress Note ---
Assessment and Plan Status post right total hip replacement postop day one going well Continue physical therapy and observation Subjective Date of service: 01/02/19 Interval history: c/o incisional pain and itching... Objective Vital signs: Vital Signs - 12hr 01/02/19 01/02/19 01/02/19 02:25 03:00 04:26 Temperature 98 F Pulse Rate 80 Respiratory 20 18 18 Rate Blood Pressure Blood Pressure 110/63 [Left] O2 Sat by Pulse 98 Oximetry 01/02/19 01/02/19 01/02/19 06:48 08:00 12:00 Temperature 97.9 F 97.7 F Pulse Rate 87 92 H Respiratory 18 18 18 Rate Blood Pressure Blood Pressure 105/56 126/71 [Left] O2 Sat by Pulse Oximetry 01/02/19 01/02/19 13:13 13:15 Temperature Pulse Rate Respiratory Rate Blood Pressure 126/71 126/71 Blood Pressure [Left] O2 Sat by Pulse Oximetry Narrative Exam: Right lower extremity. Dressings intact mild swelling noted in the proximal thigh negative Homans sign good capillary refill - Labs CBC & BMP: 01/02/19 05:32 01/02/19 05:32 Labs: Abnormal lab results 12/31/18 01/02/19 01/02/19 Range/Units 07:10 05:32 05:32 RBC 3.17 L (3.65-5.03) M/mm3 Hgb 9.6 L (10.1-14.3) gm/dl Hct 27.8 L D (30.3-42.9) % MCHC 35 H (30-34) % RDW 15.8 H (13.2-15.2) % Seg Neutrophils % 70.4 H (40.0-70.0) % Sodium 135 L (137-145) mmol/L Chloride 97.5 L (98-107) mmol/L Creatinine 0.6 L (0.7-1.2) mg/dL Glucose 106 H (65-100) mg/dL Crossmatch See Detail
[2019-01-02] MEDS: TYLENOL PO PRN (18:14)
[2019-01-02] MEDS: LACTATED RINGERS 1,000 ML IV SCH (18:15)
[2019-01-03] MEDS: ROXICODONE PO PRN (00:53)
[2019-01-03] MEDS: BENADRYL PO PRN ×3 (00:53→10:35)
[2019-01-03] MEDS: NORCO 5/325 PO PRN (03:46)
[2019-01-03] MEDS: TYLENOL PO PRN (04:55)
[2019-01-03] MEDS: TIVICAY PO SCH (10:30)
[2019-01-03] MEDS: VALTREX PO SCH ×2 (10:31→21:52)
[2019-01-03] MEDS: COZAAR PO SCH (10:34)
[2019-01-03] MEDS: EPIVIR PO SCH (10:36)
[2019-01-03] MEDS: HCTZ PO SCH (10:37)
[2019-01-03] MEDS: NORVASC PO SCH (10:37)
[2019-01-03] MEDS: LOVENOX SUB-Q SCH (10:38)
[2019-01-03] MEDS: MORPHINE IV PRN ×2 (10:39→14:37)
[2019-01-03] MEDS: LACTATED RINGERS 1,000 ML IV SCH (10:56)
--- NOTE | 2019-01-03 11:21 | Progress Note ---
Assessment and Plan Assessment and plan: --Hypertension; moderate control Resume antihypertensives (Norvasc and Benicar) and when necessary hydralazine --HIV-AIDS; cont. home antiretrovirals Consult ID if needed --Severe osteoarthritis hip; status post total hip replacement Continue postop care per orthopedics --Anemia; iron deficiency, Continue iron supplements, Transfuse PRBCs for hemoglobin less than 7 Closely monitor H&H and transfuse additional as needed --Obesity; BMI 32.8, advised weight reduction and medically stable --DVT prophylaxis; Lovenox History Interval history: No issues overnight. Hospitalist Physical - Constitutional Vitals: Temp Pulse Resp BP Pulse Ox 97.8 F 94 H 20 133/64 97 01/03/19 08:15 01/03/19 10:37 01/03/19 08:15 01/03/19 10:37 01/03/19 08:15 General appearance: Present: no acute distress, well-nourished - EENT Eyes: Present: PERRL, EOM intact ENT: hearing intact, clear oral mucosa, dentition normal - Neck Neck: Present: supple, normal ROM - Respiratory Respiratory effort: normal Respiratory: bilateral: CTA - Cardiovascular Rhythm: regular Heart Sounds: Present: S1 & S2. Absent: gallop, rub - Extremities Extremities: no ischemia, No edema, Full ROM - Abdominal General gastrointestinal: soft, non-tender, non-distended, normal bowel sounds - Integumentary Integumentary: Present: clear, warm, dry - Neurologic Neurologic: CNII-XII intact, moves all extremities Results - Labs CBC & Chem 7: 01/02/19 05:32 01/02/19 05:32 Labs: Laboratory Last Values WBC 9.9 K/mm3 (4.5-11.0) 01/02/19 05:32 RBC 3.17 M/mm3 (3.65-5.03) L 01/02/19 05:32 Hgb 9.6 gm/dl (10.1-14.3) L 01/02/19 05:32 Hct 27.8 % (30.3-42.9) L D 01/02/19 05:32 MCV 88 fl (79-97) 01/02/19 05:32 MCH 30 pg (28-32) 01/02/19 05:32 MCHC 35 % (30-34) H 01/02/19 05:32 RDW 15.8 % (13.2-15.2) H 01/02/19 05:32 Plt Count 142 K/mm3 (140-440) 01/02/19 05:32 Lymph % (Auto) 21.6 % (13.4-35.0) 01/02/19 05:32 [place] % (Auto) 7.3 % (0.0-7.3) 01/02/19 05:32 Eos % (Auto) 0.5 % (0.0-4.3) 01/02/19 05:32 Baso % (Auto) 0.2 % (0.0-1.8) 01/02/19 05:32 Lymph # 2.1 K/mm3 (1.2-5.4) 01/02/19 05:32 [place] # 0.7 K/mm3 (0.0-0.8) 01/02/19 05:32 Eos # 0.1 K/mm3 (0.0-0.4) 01/02/19 05:32 Baso # 0.0 K/mm3 (0.0-0.1) 01/02/19 05:32 Seg Neutrophils % 70.4 % (40.0-70.0) H 01/02/19 05:32 Seg Neutrophils # 7.0 K/mm3 (1.8-7.7) 01/02/19 05:32 Sodium 135 mmol/L (137-145) L 01/02/19 05:32 Potassium 3.6 mmol/L (3.6-5.0) 01/02/19 05:32 Chloride 97.5 mmol/L (98-107) L 01/02/19 05:32 Carbon Dioxide 27 mmol/L (22-30) 01/02/19 05:32 14 mmol/L 01/02/19 05:32 BUN 10 mg/dL (7-17) 01/02/19 05:32 0.6 mg/dL (0.7-1.2) L 01/02/19 05:32 Estimated GFR > 60 ml/min 01/02/19 05:32 17 % 01/02/19 05:32 Glucose 106 mg/dL (65-100) H 01/02/19 05:32 Calcium 9.0 mg/dL (8.4-10.2) 01/02/19 05:32 0.40 mg/dL (0.1-1.2) 12/31/18 07:10 AST 22 units/L (5-40) 12/31/18 07:10 ALT 22 units/L (7-56) 12/31/18 07:10 100 units/L (35-129) 12/31/18 07:10 8.9 g/dL (6.3-8.2) H 12/31/18 07:10 4.5 g/dL (3.9-5) 12/31/18 07:10 1.0 % 12/31/18 07:10 Blood Type A POSITIVE 12/31/18 07:10 Antibody Screen Negative 12/31/18 07:10 Crossmatch See Detail 12/31/18 07:10 Active Medications - Current Medications Current Medications: Generic Name Dose Route Start Last Admin Trade Name Freq PRN Reason Stop Dose Admin Acetaminophen 650 mg 01/01/19 05:42 01/03/19 04:55 Tylenol PO 650 mg Q6H PRN Administration Pain, Mild (1-3) Acetaminophen/Hydrocodone Bitart 1 each 12/31/18 10:05 01/03/19 03:46 [place] 5/325 PO 1 each Q6H PRN Administration Pain, Moderate (4-6) Amlodipine Besylate 5 mg 01/02/19 10:00 01/03/19 10:37 Norvasc PO 5 mg DAILY LASHONDA Administration Diphenhydramine HCl 25 mg 01/02/19 19:27 01/03/19 10:35 Benadryl PO 25 mg Q4H PRN Administration Itching Enoxaparin Sodium 40 mg 01/01/19 10:00 01/03/19 10:38 Lovenox SUB-Q 40 mg QDAY LASHONDA Administration Hydrochlorothiazide 12.5 mg 01/02/19 11:30 01/03/19 10:37 Hctz PO 12.5 mg QDAY LASHONDA Administration Lactated Ringer's 1,000 mls @ 125 mls/hr 12/31/18 08:00 01/03/19 10:56 Lactated Ringers IV 125 mls/hr DIRECT LASHONDA Administration Ibuprofen 800 mg 01/01/19 16:00 01/01/19 21:48 Ibuprofen PO 800 mg Q8H PRN Administration Pain, Mild (1-3) Lamivudine 300 mg 01/02/19 10:00 01/03/19 10:36 Epivir PO Not Given QDAY [facility] Losartan Potassium 50 mg 01/02/19 11:30 01/03/19 10:34 Cozaar PO 50 mg QDAY [facility] Administration Magnesium Hydroxide 30 ml 12/31/18 10:05 Milk Of Magnesia PO Q4H PRN Constipation Miscellaneous Medication 5 mg 01/02/19 10:00 Biotin [Biotin] PO DAILY [facility] Miscellaneous Medication 1 each 01/02/19 10:00 Darunavir/Cobicistat (Nf) PO DAILY [facility] Morphine Sulfate 4 mg 12/31/18 10:05 01/03/19 10:39 Morphine IV 4 mg Q4H PRN Administration Pain , Severe (7-10) Ondansetron HCl 4 mg 12/31/18 07:24 Zofran IV ONCE PRN Nausea And Vomiting Oxycodone HCl 10 mg 01/01/19 11:00 01/03/19 00:53 Roxicodone PO 10 mg Q4H PRN Administration Pain, Moderate (4-6) Valacyclovir HCl 500 mg 01/01/19 22:00 01/03/19 10:31 Valtrex PO 500 mg BID LASHONDA Administration Zolpidem Tartrate 5 mg 12/31/18 10:05 01/01/19 21:47 Ambien PO 5 mg QHS PRN Administration Sleep
[2019-01-03] MEDS: IBUPROFEN PO PRN (17:36)
[2019-01-04] MEDS: NORCO 5/325 PO PRN (05:35)
[2019-01-04] MEDS: NORVASC PO SCH (09:24)
[2019-01-04] MEDS: COZAAR PO SCH (09:24)
[2019-01-04] MEDS: HCTZ PO SCH (09:26)
[2019-01-04] MEDS: VALTREX PO SCH ×2 (09:26→21:56)
[2019-01-04] MEDS: LOVENOX SUB-Q SCH (09:26)
[2019-01-04] MEDS: NON-FORMULARY PO SCH (09:28)
--- NOTE | 2019-01-04 09:58 | Progress Note ---
Assessment and Plan Assessment and plan: --Hypertension; moderate control Resume antihypertensives (Norvasc and Benicar) and when necessary hydralazine --HIV-AIDS; cont. home antiretrovirals Consult ID if needed --Severe osteoarthritis hip; status post total hip replacement Continue postop care per orthopedics --Anemia; iron deficiency, Continue iron supplements, Transfuse PRBCs for hemoglobin less than 7 Closely monitor H&H and transfuse additional as needed --Obesity; BMI 32.8, advised weight reduction and medically stable --DVT prophylaxis; Lovenox History Interval history: No issues overnight. Patient reports she's still having difficulty ambulating with her right lower extremity/hip Hospitalist Physical - Constitutional Vitals: Temp Pulse Resp BP Pulse Ox 99.2 F 86 20 120/75 100 01/04/19 05:09 01/04/19 09:24 01/04/19 05:35 01/04/19 09:24 01/04/19 05:09 General appearance: Present: no acute distress, well-nourished - EENT Eyes: Present: PERRL, EOM intact ENT: hearing intact, clear oral mucosa, dentition normal - Neck Neck: Present: supple, normal ROM - Respiratory Respiratory effort: normal Respiratory: bilateral: CTA - Cardiovascular Rhythm: regular Heart Sounds: Present: S1 & S2. Absent: gallop, rub - Extremities Extremities: no ischemia, No edema, Full ROM - Abdominal General gastrointestinal: soft, non-tender, non-distended, normal bowel sounds - Integumentary Integumentary: Present: clear, warm, dry - Neurologic Neurologic: CNII-XII intact, moves all extremities Results - Labs CBC & Chem 7: 01/02/19 05:32 01/02/19 05:32 Labs: Laboratory Last Values WBC 9.9 K/mm3 (4.5-11.0) 01/02/19 05:32 RBC 3.17 M/mm3 (3.65-5.03) L 01/02/19 05:32 Hgb 9.6 gm/dl (10.1-14.3) L 01/02/19 05:32 Hct 27.8 % (30.3-42.9) L D 01/02/19 05:32 MCV 88 fl (79-97) 01/02/19 05:32 MCH 30 pg (28-32) 01/02/19 05:32 MCHC 35 % (30-34) H 01/02/19 05:32 RDW 15.8 % (13.2-15.2) H 01/02/19 05:32 Plt Count 142 K/mm3 (140-440) 01/02/19 05:32 Lymph % (Auto) 21.6 % (13.4-35.0) 01/02/19 05:32 [place] % (Auto) 7.3 % (0.0-7.3) 01/02/19 05:32 Eos % (Auto) 0.5 % (0.0-4.3) 01/02/19 05:32 Baso % (Auto) 0.2 % (0.0-1.8) 01/02/19 05:32 Lymph # 2.1 K/mm3 (1.2-5.4) 01/02/19 05:32 [place] # 0.7 K/mm3 (0.0-0.8) 01/02/19 05:32 Eos # 0.1 K/mm3 (0.0-0.4) 01/02/19 05:32 Baso # 0.0 K/mm3 (0.0-0.1) 01/02/19 05:32 Seg Neutrophils % 70.4 % (40.0-70.0) H 01/02/19 05:32 Seg Neutrophils # 7.0 K/mm3 (1.8-7.7) 01/02/19 05:32 Sodium 135 mmol/L (137-145) L 01/02/19 05:32 Potassium 3.6 mmol/L (3.6-5.0) 01/02/19 05:32 Chloride 97.5 mmol/L (98-107) L 01/02/19 05:32 Carbon Dioxide 27 mmol/L (22-30) 01/02/19 05:32 14 mmol/L 01/02/19 05:32 BUN 10 mg/dL (7-17) 01/02/19 05:32 0.6 mg/dL (0.7-1.2) L 01/02/19 05:32 Estimated GFR > 60 ml/min 01/02/19 05:32 17 % 01/02/19 05:32 Glucose 106 mg/dL (65-100) H 01/02/19 05:32 Calcium 9.0 mg/dL (8.4-10.2) 01/02/19 05:32 0.40 mg/dL (0.1-1.2) 12/31/18 07:10 AST 22 units/L (5-40) 12/31/18 07:10 ALT 22 units/L (7-56) 12/31/18 07:10 100 units/L (35-129) 12/31/18 07:10 8.9 g/dL (6.3-8.2) H 12/31/18 07:10 4.5 g/dL (3.9-5) 12/31/18 07:10 1.0 % 12/31/18 07:10 Blood Type A POSITIVE 12/31/18 07:10 Antibody Screen Negative 12/31/18 07:10 Crossmatch See Detail 12/31/18 07:10 Active Medications - Current Medications Current Medications: Generic Name Dose Route Start Last Admin Trade Name Mj PRN Reason Stop Dose Admin Acetaminophen 650 mg 01/01/19 05:42 01/03/19 04:55 Tylenol PO 650 mg Q6H PRN Administration Pain, Mild (1-3) Acetaminophen/Hydrocodone Bitart 1 each 12/31/18 10:05 01/04/19 05:35 [place] 5/325 PO 1 each Q6H PRN Administration Pain, Moderate (4-6) Amlodipine Besylate 5 mg 01/02/19 10:00 01/04/19 09:24 Norvasc PO 5 mg DAILY LASHONDA Administration Diphenhydramine HCl 25 mg 01/02/19 19:27 01/03/19 10:35 Benadryl PO 25 mg Q4H PRN Administration Itching Enoxaparin Sodium 40 mg 01/01/19 10:00 01/04/19 09:26 Lovenox SUB-Q 40 mg QDAY LASHONDA Administration Hydrochlorothiazide 12.5 mg 01/02/19 11:30 01/04/19 09:26 Hctz PO Not Given QDAY LASHONDA Lactated Ringer's 1,000 mls @ 125 mls/hr 12/31/18 08:00 01/03/19 10:56 Lactated Ringers IV 125 mls/hr DIRECT LASHONDA Administration Ibuprofen 800 mg 01/01/19 16:00 08/11/19 17:36 Ibuprofen PO 800 mg Q8H PRN Administration Pain, Mild (1-3) Losartan Potassium 50 mg 01/02/19 11:30 01/04/19 09:24 Cozaar PO 50 mg QDAY LASHONDA Administration Magnesium Hydroxide 30 ml 12/31/18 10:05 Milk Of Magnesia PO Q4H PRN Constipation Miscellaneous Medication 5 mg 01/02/19 10:00 Biotin [Biotin] PO DAILY [facility] Miscellaneous Medication 1 each 01/02/19 10:00 Darunavir/Cobicistat (Nf) PO DAILY [facility] Miscellaneous Medication 1 each 01/04/19 10:00 01/04/19 09:28 Non-Formulary PO 1 each QDAY [facility] Administration Morphine Sulfate 4 mg 12/31/18 10:05 01/03/19 14:37 Morphine IV 4 mg Q4H PRN Administration Pain , Severe (7-10) Ondansetron HCl 4 mg 12/31/18 07:24 Zofran IV ONCE PRN Nausea And Vomiting Oxycodone HCl 10 mg 01/01/19 11:00 01/03/19 00:53 Roxicodone PO 10 mg Q4H PRN Administration Pain, Moderate (4-6) Valacyclovir HCl 500 mg 01/01/19 22:00 01/04/19 09:26 Valtrex PO 500 mg BID LASHONDA Administration Zolpidem Tartrate 5 mg 12/31/18 10:05 01/01/19 21:47 Ambien PO 5 mg QHS PRN Administration Sleep
[2019-01-04] MEDS: IBUPROFEN PO PRN ×2 (15:15→23:40)
--- NOTE | 2019-01-04 17:16 | Progress Note ---
Assessment and Plan Status post right total hip replacement postop day one going well Continue physical therapy and observation Subjective Date of service: 01/04/19 Interval history: c/o incisional pain and itching... Objective Vital signs: Vital Signs - 12hr 01/04/19 01/04/19 01/04/19 05:35 08:17 09:24 Temperature 99.4 F Pulse Rate 86 86 Respiratory 20 18 Rate Blood Pressure 118/75 120/75 O2 Sat by Pulse 96 Oximetry 01/04/19 01/04/19 10:00 12:12 Temperature 99.0 F Pulse Rate 88 Respiratory 20 18 Rate Blood Pressure 119/72 O2 Sat by Pulse 100 Oximetry - Labs CBC & BMP: 01/02/19 05:32 01/02/19 05:32
--- NOTE | 2019-01-04 18:43 | XRay Report ---
RIGHT HIP 2 VIEWS. INDICATION / CLINICAL INFORMATION: post op right THR, c/o pain -pt having pt COMPARISON: None available. FINDINGS: BONES / JOINT(S): Placement of a right hip prosthesis with solitary cerclage wire. Alignment is satis factory. A left hip prosthesis has been previously placed SOFT TISSUES: Postsurgical change soft tissues right thigh. ADDITIONAL FINDINGS: None. Signer Name: Heber Arcos MD Signed: 01/04/2019 6:39 PM Workstation Name: [id number]
[2019-01-04] MEDS: AMBIEN PO PRN (23:40)
[2019-01-05] MEDS: NORVASC PO SCH (09:30)
[2019-01-05] MEDS: VALTREX PO SCH (09:31)
[2019-01-05] MEDS: HCTZ PO SCH (09:31)
[2019-01-05] MEDS: LOVENOX SUB-Q SCH (09:31)
[2019-01-05] MEDS: COZAAR PO SCH (09:31)
[2019-01-05] MEDS: NON-FORMULARY PO SCH (09:32)
[2019-01-05] MEDS: IBUPROFEN PO PRN (09:32)
[2019-01-05] MEDS ORDERED: PREZCOBIX PO SCH (10:00)
[2019-01-05] MEDS: NORCO 5/325 PO PRN (11:53)
[2019-01-05 14:07] VITALS: BP 148/79
--- NOTE | 2019-01-05 15:43 | Progress Note ---
Assessment and Plan Assessment and plan: --Hypertension; wel controlled Resume antihypertensives (Norvasc and Benicar) and when necessary hydralazine --HIV-AIDS; cont. home antiretrovirals Consult ID if needed --Severe osteoarthritis hip; status post total hip replacement Continue postop care per orthopedics --Anemia; iron deficiency, Continue iron supplements, Transfuse PRBCs for hemoglobin less than 7 Closely monitor H&H and transfuse additional as needed --Obesity; BMI 32.8, advised weight reduction and medically stable --DVT prophylaxis; Lovenox History Interval history: Patient was seen and evaluated this morning, patient was c/o of she is not ambulating well. Hospitalist Physical - Physical exam Narrative exam: Not in cardiopulmonary distress. The patient is obese. Vital signs as documented. Head exam is unremarkable. No scleral icterus . Neck is without jugular venous distension, thyromegaly, or carotid bruits. Lungs are clear to auscultation. Cardiac exam reveals regular rate and Rhythm. Abdominal exam reveals normal bowel sounds, no masses, no organomegaly and no aortic enlargement. Extremities are nonedematous and both femoral and pedal pulses are normal. SENIOR ATTORNEY: Alert and oriented 3. No focal weakness. - Constitutional Vitals: Temp Pulse Resp BP Pulse Ox 98.0 F 83 20 148/79 100 01/05/19 11:47 01/05/19 09:30 01/05/19 11:47 01/05/19 11:47 01/05/19 08:00 General appearance: Present: no acute distress, well-nourished Results - Labs CBC & Chem 7: 01/02/19 05:32 01/02/19 05:32 Labs: Laboratory Last Values WBC 9.9 K/mm3 (4.5-11.0) 01/02/19 05:32 RBC 3.17 M/mm3 (3.65-5.03) L 01/02/19 05:32 Hgb 9.6 gm/dl (10.1-14.3) L 01/02/19 05:32 Hct 27.8 % (30.3-42.9) L D 01/02/19 05:32 MCV 88 fl (79-97) 01/02/19 05:32 MCH 30 pg (28-32) 01/02/19 05:32 MCHC 35 % (30-34) H 01/02/19 05:32 RDW 15.8 % (13.2-15.2) H 01/02/19 05:32 Plt Count 142 K/mm3 (140-440) 01/02/19 05:32 Lymph % (Auto) 21.6 % (13.4-35.0) 01/02/19 05:32 [place] % (Auto) 7.3 % (0.0-7.3) 01/02/19 05:32 Eos % (Auto) 0.5 % (0.0-4.3) 01/02/19 05:32 Baso % (Auto) 0.2 % (0.0-1.8) 01/02/19 05:32 Lymph # 2.1 K/mm3 (1.2-5.4) 01/02/19 05:32 [place] # 0.7 K/mm3 (0.0-0.8) 01/02/19 05:32 Eos # 0.1 K/mm3 (0.0-0.4) 01/02/19 05:32 Baso # 0.0 K/mm3 (0.0-0.1) 01/02/19 05:32 Seg Neutrophils % 70.4 % (40.0-70.0) H 01/02/19 05:32 Seg Neutrophils # 7.0 K/mm3 (1.8-7.7) 01/02/19 05:32 Sodium 135 mmol/L (137-145) L 01/02/19 05:32 Potassium 3.6 mmol/L (3.6-5.0) 01/02/19 05:32 Chloride 97.5 mmol/L (98-107) L 01/02/19 05:32 Carbon Dioxide 27 mmol/L (22-30) 01/02/19 05:32 14 mmol/L 01/02/19 05:32 BUN 10 mg/dL (7-17) 01/02/19 05:32 0.6 mg/dL (0.7-1.2) L 01/02/19 05:32 Estimated GFR > 60 ml/min 01/02/19 05:32 17 % 01/02/19 05:32 Glucose 106 mg/dL (65-100) H 01/02/19 05:32 Calcium 9.0 mg/dL (8.4-10.2) 01/02/19 05:32 0.40 mg/dL (0.1-1.2) 12/31/18 07:10 AST 22 units/L (5-40) 12/31/18 07:10 ALT 22 units/L (7-56) 12/31/18 07:10 100 units/L (35-129) 12/31/18 07:10 8.9 g/dL (6.3-8.2) H 12/31/18 07:10 4.5 g/dL (3.9-5) 12/31/18 07:10 1.0 % 12/31/18 07:10 Blood Type A POSITIVE 12/31/18 07:10 Antibody Screen Negative 12/31/18 07:10 Crossmatch See Detail 12/31/18 07:10 Active Medications - Current Medications Current Medications: Generic Name Dose Route Start Last Admin Trade Name Freq PRN Reason Stop Dose Admin Acetaminophen 650 mg 01/01/19 05:42 01/03/19 04:55 Tylenol PO 650 mg Q6H PRN Administration Pain, Mild (1-3) Acetaminophen/Hydrocodone Bitart 1 each 12/31/18 10:05 01/05/19 11:53 [place] 5/325 PO 1 each Q6H PRN Administration Pain, Moderate (4-6) Amlodipine Besylate 5 mg 01/02/19 10:00 01/05/19 09:30 Norvasc PO 5 mg DAILY LASHONDA Administration Diphenhydramine HCl 25 mg 01/02/19 19:27 01/03/19 10:35 Benadryl PO 25 mg Q4H PRN Administration Itching Enoxaparin Sodium 40 mg 01/01/19 10:00 01/05/19 09:31 Lovenox SUB-Q 40 mg QDAY LASHONDA Administration Hydrochlorothiazide 12.5 mg 01/02/19 11:30 01/05/19 09:31 Hctz PO 12.5 mg QDAY LASHONDA Administration Lactated Ringer's 1,000 mls @ 125 mls/hr 12/31/18 08:00 01/03/19 10:56 Lactated Ringers IV 125 mls/hr DIRECT LASHONDA Administration Ibuprofen 800 mg 01/01/19 16:00 01/05/19 09:32 Ibuprofen PO 800 mg Q8H PRN Administration Pain, Mild (1-3) Losartan Potassium 50 mg 01/02/19 11:30 01/05/19 09:31 Cozaar PO 50 mg QDAY LASHONDA Administration Magnesium Hydroxide 30 ml 12/31/18 10:05 Milk Of Magnesia PO Q4H PRN Constipation Miscellaneous Medication 5 mg 01/02/19 10:00 Biotin [Biotin] PO DAILY [facility] Miscellaneous Medication 1 each 01/04/19 10:00 01/05/19 09:32 Non-Formulary PO 1 each QDAY [facility] Administration Morphine Sulfate 4 mg 12/31/18 10:05 01/03/19 14:37 Morphine IV 4 mg Q4H PRN Administration Pain , Severe (7-10) Ondansetron HCl 4 mg 12/31/18 07:24 Zofran IV ONCE PRN Nausea And Vomiting Oxycodone HCl 10 mg 01/01/19 11:00 01/03/19 00:53 Roxicodone PO 10 mg Q4H PRN Administration Pain, Moderate (4-6) Valacyclovir HCl 500 mg 01/01/19 22:00 01/05/19 09:31 Valtrex PO 500 mg BID LASHONDA Administration Zolpidem Tartrate 5 mg 12/31/18 10:05 01/04/19 23:40 Ambien PO 5 mg QHS PRN Administration Sleep
== END 2019-01-05 18:30 | disposition home health service (06) | DRG 469 ==
LOC: UNDOADMIN 16:00 → 4A 16:00 → 3A 12-31 06:06 → 3B-SURG 12-31 11:36
PROVIDERS: ADMIT Orthopaedic Surgery; ATTEND Orthopaedic Surgery
PROC: 0SR90J9 Replacement of Right Hip Joint with Synthetic Substitute, Cemented, Open Approach (ICD-10-PCS; principal; 2018-12-31)
PROC: 30233N1 Transfusion of Nonautologous Red Blood Cells into Peripheral Vein, Percutaneous Approach (ICD-10-PCS; 2019-01-01)
DX: M16.11 Unilateral primary osteoarthritis, right hip (principal); B20 Human immunodeficiency virus [HIV] disease; S72.091A Other fracture of head and neck of right femur, initial encounter for closed fracture; I10 Essential (primary) hypertension; D50.9 Iron deficiency anemia, unspecified; E66.9 Obesity, unspecified; X58.XXXA Exposure to other specified factors, initial encounter; Y93.89 Activity, other specified; Y92.89 Other specified places as the place of occurrence of the external cause; Y99.8 Other external cause status; Z68.34 Body mass index [BMI] 34.0-34.9, adult; Z88.2 Allergy status to sulfonamides
CPT/HCPCS: 36415; 80048; 80053; 85014; 85018; 85025; 86850; 86900; 86901; 86920; 88304; 88311; G0378; C1776; J0690; J1170; J1650; J1885; J2250; J2270; J2405; J2704; J7030; J7040; J7050; J7120; L8699; P9016

== ENCOUNTER 2019-03-31 13:54 | Outpatient (CLI) | payer MEDICAID ==
--- NOTE | 2019-03-31 16:25 | XRay Report ---
BILATERAL HIPS 2 VIEWS WITH PELVIS HISTORY: Bilateral primary osteoarthritis of hip COMPARISON: 01/04/2019. 12/31/2018. IMPRESSION: Bilateral hip arthroplasties are again noted and unchanged. No evidence for fracture, loo sening or infection. No dislocation. No pelvic abnormality is appreciated. Signer Name: Raffi Day Jr, MD Signed: 03/31/2019 4:21 PM Workstation Name: [id number]
== END 2019-03-31 13:55 | disposition home or self-care (01) ==
LOC: XRAY 13:54
PROVIDERS: ATTEND Orthopaedic Surgery
DX: M16.0 Bilateral primary osteoarthritis of hip (principal); I10 Essential (primary) hypertension; E66.9 Obesity, unspecified; Z86.2 Personal history of diseases of the blood and blood-forming organs and certain disorders involving the immune mechanism
CPT/HCPCS: 73521

== ENCOUNTER 2020-04-04 13:02 | Outpatient (CLI) | payer MEDICAID ==
--- NOTE | 2020-04-04 16:36 | XRay Report ---
XR femur BILAT 2+V, XR hips BILAT 2V w/pelvis INDICATION / CLINICAL INFORMATION: OSTEOARTHRITIS RIGHT HIP, RIGHT FEMUR PAIN. COMPARISON: October 01, 2018 FINDINGS: No acute fracture. Bilateral hip arthroplasties. No abnormal lucency surrounds hardware. Hardware is intact. Normal alignment. Joint spaces are preserved. No destructive osseous lesion or suspicious periosteal reaction. Impression: 1.Bilateral hip arthroplasties without complication. Signer Name: Ronaldo Lucas MD Signed: 04/04/2020 4:31 PM Workstation Name: [id number]
== END 2020-04-04 13:03 | disposition home or self-care (01) ==
LOC: XRAY 13:02
PROVIDERS: ATTEND Orthopaedic Surgery
DX: M16.0 Bilateral primary osteoarthritis of hip (principal)
CPT/HCPCS: 73521